=== PATIENT | female | born 1955 | race Caucasian/White ===

== ENCOUNTER 2018-12-02 01:18 | Outpatient (CLI) | payer OTHER, SELFPAY ==
[2018-12-02 09:13] LABS: Cholesterol 256 mg/dL (50-200); HDL Cholesterol 45 mg/dL (40-60); LDL CHOLESTEROL 180 mg/dL (<100); Triglyceride 100 mg/dL (30-150)
== END 2018-12-02 01:38 ==
PROVIDERS: PCP Family Medicine; Visit Provider Family Medicine
DX: E78.5 Hyperlipidemia, unspecified (principal)
CPT/HCPCS: 36415; 80061; 83721

== ENCOUNTER 2018-12-14 01:55 | Outpatient (CLI) | payer OTHER, SELFPAY ==
[2018-12-14 10:01] LABS: TSH (W/Ref FT4) 4.75 uIU/mL (0.358-3.74)
[2018-12-14 10:30] LABS: FREE T4 1.25 ng/dL (0.76-1.46)
== END 2018-12-14 02:15 ==
PROVIDERS: PCP Family Medicine; Visit Provider Family Medicine
DX: E03.9 Hypothyroidism, unspecified (principal)
CPT/HCPCS: 36415; 84439; 84443

== ENCOUNTER 2019-01-12 01:09 | Outpatient (CLI) | payer OTHER, SELFPAY ==
--- NOTE | 2019-01-12 07:30 | DI.MAMMO_ITS ---
SYMPTOMS/DIAGNOSIS: SCREENING, Z12.31 MAMMOGRAMS: Mammograms were interpreted according to the usual protocol including computer analysis with CAD system, tomosynthesis and C view imaging. The breast tissue is of moderate radiodensity. There is no mass. There are no suspicious calcifications and there has been no significant interval change when compared with the prior images. SUMMARY: No evidence of malignancy, category 1. Annual screening mammography is recommended. Breast density category B. SA ASSESSMENT OF FINDINGS: Negative. Category 1. Patient will receive a letter notifying them of these results. BI-RADS category B. There are scattered areas of fibroglandular density.
== END 2019-01-12 01:29 ==
PROVIDERS: PCP Family Medicine; Visit Provider Family Medicine
DX: Z12.31 Encounter for screening mammogram for malignant neoplasm of breast (principal)
CPT/HCPCS: 77063; 77067

== ENCOUNTER 2020-04-04 22:16 | Outpatient (REF) | payer OTHER, SELFPAY ==
[2020-04-04 19:24] LABS: Bilirubin Negative (Negative); Blood Trace-intact (Negative); Clarity Sl Cloudy (Clear); Glucose Negative (Negative); Ketones Negative (Negative); Leukocyte Esterase Large (Negative); Nitrite Negative (Negative); Specific Gravity <= 1.005 (1.005-1.025); Urobilinogen 0.2 EU/dL (Up TO 0.2)
[2020-04-04 19:33] LABS: WBC >50 HPF (0-5)
[2020-04-04 19:34] LABS: Bacteria Moderate HPF (Negative); C & S Indicated? Yes; Epithelial Cells Negative HPF (Negative); Other Cells Few Transitional (Negative); RBC 0-2 HPF (0-2)
== END 2020-04-04 22:36 ==
LOC: LBN 22:16
PROVIDERS: PCP Family Medicine; Visit Provider Nurse Practitioner
DX: N39.0 Urinary tract infection, site not specified (principal)
CPT/HCPCS: 87077; 81003; 81015; 87086; 87186

== ENCOUNTER 2020-05-29 00:53 | Outpatient (CLI) | payer OTHER, SELFPAY ==
--- NOTE | 2020-05-29 09:45 | DI.MRI_ITS ---
EXAM: MR BRAIN WO CLINICAL HISTORY: dizziness for 2 months H81.4 VERTIGO OF CENTRAL ORIGIN TECHNIQUE: Multiplanar multisequence MRI of the brain was performed. COMPARISON: No exams were available for comparison FINDINGS: The ventricular system is normal in appearance. No signal abnormality identified in the brain apart from couple of minimal focal white matter hyperin tense foci seen T2 weighted and FLAIR imaging not unusual in this age group.. The orbital and temporal bone structures appear intact as does the pituitary. Diffusion weighted imaging shows no evidence of infarction. Susceptibility weighted imaging shows no evidence of intracranial hemorrhage. There is normal flow void in the [place] vasculature. IMPRESSION: Normal brain MRI for age. DATA REPOSITORY:
== END 2020-05-29 01:13 ==
PROVIDERS: PCP Family Medicine; Visit Provider Family Medicine
DX: H81.4 Vertigo of central origin (principal)
CPT/HCPCS: 70551

== ENCOUNTER 2020-06-04 01:43 | Outpatient (CLI) | payer OTHER, SELFPAY ==
[2020-06-04 09:08] LABS: Calculated LDL 188 mg/dL (<100); Cholesterol 255 mg/dL (<200); Glucose 96 mg/dL (74-106); HDL Cholesterol 53 mg/dL (40-60); TSH (W/Ref FT4) 7.85 uIU/mL (0.36-3.74); Triglyceride 71 mg/dL (<150)
[2020-06-04 09:24] LABS: FREE T4 1.11 ng/dL (0.76-1.46)
--- NOTE | 2020-10-01 13:01 | ZIOP_ITS ---
Date of service: 10/01/20 Time of Service: 13:01 14 Day Chemical Instrumentation Officer Referring Provider:: Dalton Indications:: Palpitations Note: There is a 14-day monitor ordered for indication of palpitations. ?Patient was in normal sinus rhythm for the majority of the recording with an average heart rate of 51 bpm. ?There were rare PACs and no PVCs recorded. ?There were 24 runs of supraventricular tachycardia the longest lasting 14 beats. ?There are no episodes of atrial fibrillation, no pauses greater than 3 seconds and no evidence of high degree heart block. ?All patient recorded events were associated with sinus rhythm.
== END 2020-06-04 02:03 ==
PROVIDERS: PCP Family Medicine; Visit Provider Family Medicine
DX: E03.9 Hypothyroidism, unspecified (principal); E78.5 Hyperlipidemia, unspecified; R73.9 Hyperglycemia, unspecified
CPT/HCPCS: 80061; 82947; 84439; 84443

== ENCOUNTER 2020-09-16 20:22 | Emergency (ER) | payer OTHER, SELFPAY ==
[2020-09-16] VITALS (17 sets, daily range): BP systolic 146–167; BP diastolic 72–87; PULSE 79–109; RESP 10–24; TEMP 36.4–36.6; O2SAT 95–98
--- NOTE | 2020-09-16 20:15 | RT.EKG_ITS ---
APPROVED REPORT Exam: Resting ECG Patient Location: E HR:97 bpm ECG Measurements Heart Rate 97 AXIS WY 143 P 60 QRSd 87 QRS 71 QT 354 T 31 QTc 451 Conclusion Sinus rhythm...normal P axis, V-rate 60- 99 Probable left atrial enlargement...P >50mS, <-0.10mV V1 I have reviewed and interpreted ECG and agree with software generated interpretation.
--- NOTE | 2020-09-16 20:32 | ED.GENADUL_ITS ---
Discharge Plan Disposition Patient Disposition: HOME Condition: Good Discharge Details Clinical Impression: Palpitations, Elevated TSH Primary Care Provider: Matthew Mcclendon ED Provider: Blank Broderick Home Meds and New Rx's Prescriptions: New levothyroxine 100 mcg capsule 100 mcg PO DAILY Qty: 20 RF: 0 Continued alprazolam 0.5 mg tablet 0.5 mg PO ONCE Qty: 1 RF: 0 omeprazole 20 mg capsule,delayed release(DR/EC) 20 mg PO DAILY Qty: 90 RF: 4 sertraline 100 mg tablet 100 mg PO DAILY Qty: 90 RF: 4 clonazepam [Klonopin] 0.5 mg tablet 0.25 mg PO BID PRN (Reason: anxiety) Qty: 10 RF: 0 Discontinued levothyroxine 75 mcg tablet 75 mcg PO DAILY Qty: 90 RF: 4 Discharge Instructions Instructions: Heart Palpitations (ED) Additional Instructions: Drink plenty of fluids and get plenty of rest. Stop taking your levothyroxine 75 mcg and start taking the levothyroxine 100 mcg tomorrow. Call your primary care doctor's office tomorrow to schedule follow-up appointment for reevaluation. Return the manager of distribution to the hospital as directed by respiratory therapy. Return immediately to the emergency department if you develop any worsening or new concerning symptoms. Discharge Data Discharge Physician: Blank Broderick Medical Decision Making 2099 -- 65-year-old female with a history of sleep apnea, anxiety, GERD, hypothyroidism presents for 2 episodes of palpitations that occurred today. Denies any symptoms at present. Heart rate initially 109 on arrival, decreased to low 90s during my evaluation. She appeared to have increasing heart rate while nurse attempting to place IV which appeared associated with anxiety. Her blood pressure is elevated at 167/82 which she states she was told on the recent visit to her primary care doctor but she does not take blood pressure medication. EKG on arrival notes a rate of 97, sinus with no acute ST-T wave ischemic findings. 2199 -- Labs reviewed. Potassium 3.4. Troponin negative. TSH elevated to 17.41 compared to previous at 7.85 in May. Free T4 normal at 1.06. CT chest notes right middle lobe and left upper lobe nodules but no PE. Also noted cardiac enlargement and left ventricular dilation which may be related to obstructive sleep apnea. Patient reassessed and she feels good at this time and feels good to go home. She has remained asymptomatic since arrival. 14-day manager of distribution placed at bedside by respiratory. Patient advised to call her primary care doctor tomorrow for follow-up within the next week. Usual and customary return precautions given prior to discharge. Medical Records Medical records reviewed: Yes I reviewed the patient's medical records. Imaging Data Radiologic Study: Radiologist's impression: CT Angiography Chest With Contrast Exam date and time: 09/16/2020 8:54 PM Age: 65 years old Clinical indication: Patient HX: Tachycardia, fluttering, R/O pe TECHNIQUE: Imaging protocol: Computed tomographic angiography of the chest with intravenous contrast. 3D rendering (Not supervised by radiologist): MIP and/or 3D reconstructed images were created by the technologist. Radiation optimization: All CT scans at this facility use at least one of these dose optimization techniques: automated exposure control; mA and/or kV adjustment per patient size (includes targeted exams where dose is matched to clinical indication); or iterative reconstruction. Contrast material: OMNIPAQUE 350; Contrast volume: 66 ml; Contrast route: INTRAVENOUS (IV); COMPARISON: No relevant prior studies available. FINDINGS: Pulmonary arteries: No pulmonary arterial embolism evident. Pulmonary arteries are well opacified bilaterally. Aorta: Unremarkable. No aortic aneurysm. No aortic dissection. Lungs: Lateral segment and superior right middle lobe small nodular focus of nonspecific appearance. This is noncalcified. This measures approximately 6 x 5 mm. See series 6, image 350. Left upper lobe slightly stellate nodule measuring approximately 6 x 4 mm on series 6, image 122. Some areas of linear lung scarring or atelectatic type changes seen in the inferior and inferolateral right lower lobe and the left lung base. Linear scar-like changes also seen in the right upper lobe laterally. No infiltrative consolidation. No edema. Pleural space: No pleural effusion. Heart: Mild cardiomegaly. Left ventricular dilatation. No pericardial effusion. Lymph nodes: Calcified left hilar and left mediastinal lymph nodes related to an old granulomatous process. No enlarged lymph nodes. Bones/joints: Degenerative disc and joint disease.. No acute fracture. Soft tissues: Unremarkable. IMPRESSION: 1. No pulmonary arterial embolism evident. 2. Right middle lobe lateral segment nodule measuring 6 x 5 mm with slight stellate appearance. This may be pleural based on the horizontal fissure. See coronal series 10, image 31 with lung window. See series 6, image 350 on axial sequences. 3. Left upper lobe slightly stellate nodule measuring 6 x 4 mm. See series 6, image 21. See series 10, image 37. For patients at low risk (minimal or absent history of smoking and of other known risk factors), no routine follow-up is indicated. For patients at high risk (history of smoking or of other known risk factors), consider optional CT Chest at 12 months. (Reference: Pete) 4. No pleural effusions. 5. Cardiac enlargement. Left ventricular dilatation. No pericardial effusion. Lab Data Lab results reviewed: Yes I reviewed the patient's lab results. Labs: Laboratory Tests Range/Units 09/16/20 09/16/20 09/16/20 20:39 20:39 20:39 WBC (4.4-10.8) 10^3/uL 9.34 RBC (3.93-5.22) 10^6/uL 4.75 Hgb (11.2-15.7) g/dL 13.6 Hct (36.0-46.0) % 41.7 MCV (80-95) fL 87.8 MCH (27.0-33.0) pg 28.6 MCHC (32.0-36.0) % 32.6 RDW (11.7-14.6) % 12.1 Plt Count (130-400) 10^3/uL 285 MPV (8.0-11.0) fL 10.1 Immature Gran % 0.4 Neutrophils % 58.4 Lymphocytes % 31.3 Monocytes % 6.7 Eosinophils % 2.6 Basophils % 0.6 Nucleated RBC % % 0 Absolute Neutrophils (1.2-6.7) 10^3/uL 5.45 Absolute Lymphocytes (1.2-3.4) 10^3/uL 2.92 Absolute Monocytes (0.1-0.8) 10^3/uL 0.63 Absolute Eosinophils (0.0-0.7) 10^3/uL 0.24 Absolute Basophils (0.0-0.2) 10^3/uL 0.06 D-Dimer (<500) ng/mlFEU 397 Sodium (136-145) mmol/L 136 Potassium (3.5-5.1) mmol/L 3.4 L Chloride (98-107) mmol/L 101 Carbon Dioxide (21.0-32.0) mmol/L 29.0 Anion Gap (3-11) mmol/L 6.0 BUN (7-18) mg/dL 13 Creatinine (0.55-1.02) mg/dL 0.96 Estimated GFR/1.73 m2 (mL/min/1.73m2) 58.70 Glucose (74-106) mg/dL 155 H Calcium (8.5-10.1) mg/dL 8.9 Magnesium (1.8-2.4) mg/dL 2.2 Total Bilirubin (0.2-1.0) mg/dL 0.2 AST (15-37) U/L 17 ALT (14-59) U/L 28 Alkaline Phosphatase (46-116) U/L 100 Troponin I (<0.06) ng/mL < 0.05 Total Protein (6.4-8.2) g/dL 8.3 H Albumin (3.4-5.0) g/dL 3.8 TSH (0.36-3.74) uIU/mL Range/Units 09/16/20 20:39 WBC (4.4-10.8) 10^3/uL RBC (3.93-5.22) 10^6/uL Hgb (11.2-15.7) g/dL Hct (36.0-46.0) % MCV (80-95) fL MCH (27.0-33.0) pg MCHC (32.0-36.0) % RDW (11.7-14.6) % Plt Count (130-400) 10^3/uL MPV (8.0-11.0) fL Immature Gran % Neutrophils % Lymphocytes % Monocytes % Eosinophils % Basophils % Nucleated RBC % % Absolute Neutrophils (1.2-6.7) 10^3/uL Absolute Lymphocytes (1.2-3.4) 10^3/uL Absolute Monocytes (0.1-0.8) 10^3/uL Absolute Eosinophils (0.0-0.7) 10^3/uL Absolute Basophils (0.0-0.2) 10^3/uL D-Dimer (<500) ng/mlFEU Sodium (136-145) mmol/L Potassium (3.5-5.1) mmol/L Chloride (98-107) mmol/L Carbon Dioxide (21.0-32.0) mmol/L Anion Gap (3-11) mmol/L BUN (7-18) mg/dL Creatinine (0.55-1.02) mg/dL Estimated GFR/1.73 m2 (mL/min/1.73m2) Glucose (74-106) mg/dL Calcium (8.5-10.1) mg/dL Magnesium (1.8-2.4) mg/dL Total Bilirubin (0.2-1.0) mg/dL AST (15-37) U/L ALT (14-59) U/L Alkaline Phosphatase (46-116) U/L Troponin I (<0.06) ng/mL Total Protein (6.4-8.2) g/dL Albumin (3.4-5.0) g/dL TSH (0.36-3.74) uIU/mL 17.41 H ECG Data Attestation: I personally reviewed and interpreted this ECG (s) as follows: Interpretation: Rate of 97, sinus, no acute ST elevation or depression. VA 143. QRS 87. QTc 354. HPI General Mode of arrival: ambulatory . Date/Time Provider Initiated Documentation: 09/16/20 20:25 . Limitations to Documentation: no limitations . Information obtained by: patient . HPI Narrative: Patient is a 65-year-old female with a history of obstructive sleep apnea on CPAP, anxiety, hypothyroidism, GERD who presents for 2 episodes of heart fluttering today. 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 She states she had another episode that started at home this evening while standing doing dishes and then sitting that lasted for approximately 5 minutes and then resolved. She denies any chest pain, shortness of breath, nausea, vomiting or dizziness with either episode today. She states she has had similar episodes of heart fluttering and pounding in the past but states this is more intense than previous. She states these episodes do occur every few weeks. She states she has seen her primary care doctor for this but not had any additional evaluation. She denies any previous heart monitor. She denies any excessive caffeine intake, rnrf-dmg-syymdid supplements, energy supplements, new medications, recent travel, recent surgery, leg pain or swelling. Related Data Home Medications Medication Instructions Recorded Confirmed omeprazole 20 mg capsule,delayed 20 mg PO DAILY #90 tab-cap 11/16/18 09/16/20 release clonazepam 0.5 mg tablet 0.25 mg PO BID PRN #10 tab 10/23/19 09/16/20 sertraline 100 mg tablet 100 mg PO DAILY #90 tab-cap 11/21/19 09/16/20 alprazolam 0.5 mg tablet 0.5 mg PO ONCE #1 tab 05/21/20 09/16/20 levothyroxine 100 mcg PO DAILY #20 cap 09/16/20 Previous Rx's Medication Instructions Recorded omeprazole 20 mg capsule,delayed 20 mg PO DAILY #90 tab-cap 11/16/18 release clonazepam 0.5 mg tablet 0.25 mg PO BID PRN #10 tab 10/23/19 sertraline 100 mg tablet 100 mg PO DAILY #90 tab-cap 11/21/19 alprazolam 0.5 mg tablet 0.5 mg PO ONCE #1 tab 05/21/20 levothyroxine 100 mcg PO DAILY #20 cap 09/16/20 Allergies Allergy/AdvReac Type Severity Reaction Status Date / Time No Known Allergies Allergy Verified 09/16/20 20:37 Review of Systems All systems reviewed & are unremarkable except as noted in HPI and below Constitutional Constitutional: Reports as per HPI, Denies chills and Denies fever(s) Eyes Eyes: Denies blurry vision ENT Ears, Nose, Mouth, and Throat: Denies dizziness, Denies sore throat and Denies throat swelling Cardiovascular Cardiovascular: Denies chest pain, Reports palpitations and Denies dyspnea Respiratory Respiratory: Denies cough and Denies dyspnea Gastrointestinal Gastrointestinal: Denies abdominal pain, Denies diarrhea and Denies vomiting Genitourinary Genitourinary: Denies hematuria and Denies dysuria Musculoskeletal Musculoskeletal: Denies back pain and Denies numbness Integumentary/Breasts Skin/Breast: Denies lesions and Denies rash Neurologic Neurologic: Denies dizziness, Denies localized weakness and Denies numbness Endocrine Endocrine: Reports palpitations Allergic/Immunologic Allergic/Immunologic: Denies throat swelling [facility] Medical History (Updated 09/16/20 @ 22:15 by Blank Broderick DO) Severe obstructive sleep apnea (~08/09/19) DR. SHIPMAN Shoulder pain, left Sleep disorder Family History Mother , 74 Essential hypertension Hyperlipidemia Neoplasm LUNG Lung cancer Father , 69 Essential hypertension Heart disease Glioblastoma Sister Depression Brother No problems noted. Brother Depression Maternal Grandfather No problems noted. Paternal Grandfather No problems noted. Maternal Grandmother , 76? Heart disease Paternal Grandmother Uterine cancer Son No problems noted. Son No problems noted. Social History (Updated 11/16/18 @ 13:02 by Pramod Butler) Smoking/Tobacco Use Status: Never Second Hand Exposure: Yes Smoking risk assessment performed?: Yes Alcohol Intake: current Alcohol Intake frequency: holidays/special occasions only Alcohol type: wine Drug use: Never Substance use type: does not use Caregiver/Support person: No Household members: spouse Housing: house Communication Needs: Corrective Lenses Pets and animals: Yes Pets and animals: dog(s) Sexually active: No Do you think of yourself as: straight/heterosexual Current gender identity: female What is your relationship status?: How often do you talk on the phone with friends or family?: once per week How often do you get together with friends or relatives?: once per week How often do you attend sikh or uatsdin services?: 1-3 times per year Do you belong to any clubs or organized social groups?: yes Panel score (0-1 are the most socially isolated patients): 2 What type of physical activity do you participate in: walking and yoga Duration: 15-30 minutes/day Frequency: daily Fide/Protestant: Episcopal Special fide needs: No Seatbelt use: always Helmet use: Yes Drive intox or ride w/intox industrial truck driver: No Do you feel safe at home: Yes Do you feel safe in your relationship?: Yes Exam Const General: cooperative, healthy appearing and no acute distress Orientation: alert, awake and oriented x3 HENMT Head: normal to inspection Face and sinus: normal facial exam Eyes General: appearance normal, both eyes and all related structures Pupils: PERRL EOM: EOM intact bilaterally Neck Neck: normal visual inspection and No submandibular swelling Lymphatic: no lymphadenopathy noted Chest Chest: normal inspection of the chest and no tenderness Resp Effort & Inspection: normal respiratory effort and able to speak in complete s entences Auscultation: clear to auscultation bilaterally Cardio Rate: regular rate Rhythm: regular rhythm GI Inspection: normal to inspection Palpation: soft, not firm, not rigid and nontender Auscultation: normal bowel sounds Back/Spine/Pelvis Thoracic/Lumbar Spine: thoracic and lumbar spine normal to inspection Skin General skin exam: no rashes or lesions noted Neuro General: patient alert, patient awake and patient oriented x3 Cognition: normal cognition Speech: speech normal Motor: muscle tone normal throughout Sensory Exam: no sensory deficits noted Extrem General: normal to inspection, full ROM, capillary refill normal, no calf tenderness bilaterally and no edema Psych Appearance: grossly normal Mental Status: mental status grossly normal Speech and Movement: speech and movement normal Affect: normal affect
--- NOTE | 2020-09-16 20:45 | DI.CT_ITS ---
EXAM: CT CHEST PE CTA CLINICAL HISTORY: tachycardia, fluttering, r/o PE. TECHNIQUE: Imaging Protocol: Axial CT angiography was performed with multi-slice acquisition and mu lti-planar and/or 3D reconstructions. CONTRAST MATERIAL: Intravenous: Omnipaque 350 Contrast volume:66 mL COMPARISON: No exams were available for comparison FINDINGS: Exam is mildly limited by respiratory motion. Pulmonary Arteries: No evidence of filling defect to suggest pulmonary emboli. Tracheobronchial tree: Patent where visualized. Mediastinum and Liz: Small calcified left hilar lymph nodes consistent with old granulomatous diseas e. No dominant adenopathy or fluid collection. Pulmonary parenchyma: Respiratory motion. Mild dependent changes and basilar atelectasis. [address] left upper lobe nodule. 3 millimeter right upper lobe nodule. Sub pleural scarring. Scarring a long the minor fissure. Pleura: No effusion or pneumothorax. Heart: The heart is not dilated. No coronary artery calcifications are seen. Aorta: Thoracic aorta non-dilated. Mild atherosclerotic changes. Upper abdomen: Tiny hiatal hernia. Bones: Mild degenerative disc changes. IMPRESSION: No evidence of pulmonary embolism. Evaluation of the lungs is limited due to respiratory motion and expiratory changes. A 6 millimeter nodule is noted in the left upper lobe a follow-up chest CT could be considered in 12 months. RADIATION DOSE DELIVERED: 339.06mGy.cm Total DLP DATA REPOSITORY: All CT scans at this facility are submitted to the National Radiology Data Registry (NRDR) Dose Index Registry (DIR) with the [employer] (ACR). RADIATION OPTIMIZATION: All CT scans at this facility use at least one of these dose optimization te chniques: automated exposure control; mA and/or kV adjustment per patient size (includes targeted exa ms where dose is matched to clinical indication); or iterative reconstruction.
[2020-09-16 20:48] LABS: Abs Immature Grans 0.04 10^3/uL (0.0-0.06); Absolute Basophil Count 0.06 10^3/uL (0.0-0.2); Absolute Eosinophil Count 0.24 10^3/uL (0.0-0.7); Absolute Lymphocyte Count 2.92 10^3/uL (1.2-3.4); Absolute Monocyte Count 0.63 10^3/uL (0.1-0.8); Absolute Neutrophil Count 5.45 10^3/uL (1.2-6.7); Basophils % 0.6; Eosinophils % 2.6; HCT 41.7 % (36.0-46.0); HGB 13.6 g/dL (11.2-15.7); Immature Grans % 0.4; Lymphocytes % 31.3; MCH 28.6 pg (27.0-33.0); MCHC 32.6 % (32.0-36.0); MCV 87.8 fL (80-95); MPV 10.1 fL (8.0-11.0); Monocytes % 6.7; Neutrophils % 58.4; Nucleated RBC 0 %; Platelet Count 285 10^3/uL (130-400); RBC 4.75 10^6/uL (3.93-5.22); RDW 12.1 % (11.7-14.6); RDW-SD 38.7 fL; WBC 9.34 10^3/uL (4.4-10.8)
[2020-09-16 21:04] LABS: ALT 28 U/L (14-59); AST 17 U/L (15-37); Albumin 3.8 g/dL (3.4-5.0); Alkaline Phosphatase 100 U/L (46-116); BUN 13 mg/dL (7-18); Bilirubin, Total 0.2 mg/dL (0.2-1.0); CREATININE 0.96 mg/dL (0.55-1.02); Calcium 8.9 mg/dL (8.5-10.1); Chloride 101 mmol/L (98-107); Glucose 155 mg/dL (74-106); Magnesium 2.2 mg/dL (1.8-2.4); Potassium 3.4 mmol/L (3.5-5.1); Sodium 136 mmol/L (136-145); Total Protein 8.3 g/dL (6.4-8.2)
[2020-09-16 21:05] LABS: Troponin I < 0.05 ng/mL (<0.06)
[2020-09-16 21:22] LABS: D-Dimer 397 ng/mlFEU (<500)
[2020-09-16] MEDS: Omnipaque 350 MG/ML 100 ML BTL IJ (21:25)
[2020-09-16] MEDS: Normal Saline - Diluent 50 ML VIAL IV (21:26)
[2020-09-16] MEDS: ACETAMINOPHEN 1,000 MG/100 ML BTL 400 MG IVPB (21:35)
[2020-09-16] MEDS: Normal Saline 250 ML 500 ML IV (21:35)
[2020-09-16 21:36] LABS: TSH (W/Ref FT4) 17.41 uIU/mL (0.36-3.74)
[2020-09-16] MEDS: Potassium Chloride 20 MEQ TABCR PO (21:43)
--- NOTE | 2020-09-16 21:47 | NUR.NOTE ---
Nursing Note: Hayde from RT here to put halter monitor on.
--- NOTE | 2020-09-16 21:49 | DI.VRAD_ITS ---
PROCEDURE INFORMATION: Exam: CT Angiography Chest With Contrast Exam date and time: 09/16/2020 8:54 PM Age: 65 years old Clinical indication: Patient HX: Tachycardia, fluttering, R/O pe TECHNIQUE: Imaging protocol: Computed tomographic angiography of the chest with intravenous contrast. 3D rendering (Not supervised by radiologist): MIP and/or 3D reconstructed images were created by the technologist. Radiation optimization: All CT scans at this facility use at least one of these dose optimization techniques: automated exposure control; mA and/or kV adjustment per patient size (includes targeted exams where dose is matched to clinical indication); or iterative reconstruction. Contrast material: OMNIPAQUE 350; Contrast volume: 66 ml; Contrast route: INTRAVENOUS (IV); COMPARISON: No relevant prior studies available. FINDINGS: Pulmonary arteries: No pulmonary arterial embolism evident. Pulmonary arteries are well opacified bilaterally. Aorta: Unremarkable. No aortic aneurysm. No aortic dissection. Lungs: Lateral segment and superior right middle lobe small nodular focus of nonspecific appearance. This is noncalcified. This measures approximately 6 x 5 mm. See series 6, image 350. Left upper lobe slightly stellate nodule measuring approximately 6 x 4 mm on series 6, image 122. Some areas of linear lung scarring or atelectatic type changes seen in the inferior and inferolateral right lower lobe and the left lung base. Linear scar-like changes also seen in the right upper lobe laterally. No infiltrative consolidation. No edema. Pleural space: No pleural effusion. Heart: Mild cardiomegaly. Left ventricular dilatation. No pericardial effusion. Lymph nodes: Calcified left hilar and left mediastinal lymph nodes related to an old granulomatous process. No enlarged lymph nodes. Bones/joints: Degenerative disc and joint disease.. No acute fracture. Soft tissues: Unremarkable. IMPRESSION: 1. No pulmonary arterial embolism evident. 2. Right middle lobe lateral segment nodule measuring 6 x 5 mm with slight stellate appearance. This may be pleural based on the horizontal fissure. See coronal series 10, image 31 with lung window. See series 6, image 350 on axial sequences. 3. Left upper lobe slightly stellate nodule measuring 6 x 4 mm. See series 6, image 21. See series 10, image 37. For patients at low risk (minimal or absent history of smoking and of other known risk factors), no routine follow-up is indicated. For patients at high risk (history of smoking or of other known risk factors), consider optional CT Chest at 12 months. (Reference: Pete) 4. No pleural effusions. 5. Cardiac enlargement. Left ventricular dilatation. No pericardial effusion. REFERENCES: Pete Martinez, et al. Guidelines for Management of Incidental Pulmonary Nodules Detected on CT Images: From the Fleischner Society 2017. Radiology. 2017;284(1):228-243. Dictated and Authenticated by: Gus Cruz MD. Ordering:ABRAHAM Parson MD
[2020-09-16 21:57] LABS: FREE T4 1.06 ng/dL (0.76-1.46)
== END 2020-09-16 22:31 | disposition home or self-care (01) ==
PROVIDERS: Emergency Provider Physician Assistant; PCP Family Medicine
DX: R00.2 Palpitations (principal); R94.6 Abnormal results of thyroid function studies; E03.9 Hypothyroidism, unspecified; I10 Essential (primary) hypertension; R91.1 Solitary pulmonary nodule
CPT/HCPCS: 36415; 71275; 80053; 93005; 93246; 96361; 96365; 99285; 83735; 84439; 84443; 84484; 85025; 85379; 93010; J0131; J3490

== ENCOUNTER 2020-11-22 14:10 | Outpatient (REF) | payer OTHER, SELFPAY ==
--- NOTE | 2020-11-22 12:00 | PAPFT_PTH ---
PATIENT: Carina Schreiber LOC: [facility] U#:[id number] AGE/SX: 65/F ROOM: RE11/22/[address]: Matthew Mcclendon MD : [id number] BED: DIS: 11/22/2020 SPEC #: [id number] RECD: 11/22/20 17:31 STATUS: MAHOGANY MATHEW #: [id number] MATTHIAS: 11/22/20 12:[address]: Matthew Mcclendon DEPT: [facility] Cytology RECD BY: Jodie Laurent Tissues: 1 - CX/ENDOCX FOR PAP SMEARS Procedures: PAP THIN PREP/UVM Screening HPV DNA PROBE Comments: [id number]
== END 2020-11-22 14:11 | disposition home or self-care (01) ==
LOC: LBN 14:10
PROVIDERS: PCP Family Medicine; Visit Provider Family Medicine
DX: Z12.4 Encounter for screening for malignant neoplasm of cervix (principal); Z11.51 Encounter for screening for human papillomavirus (HPV)
CPT/HCPCS: 88142; 87624

== ENCOUNTER 2020-11-29 04:06 | Outpatient (CLI) | payer OTHER, SELFPAY ==
--- NOTE | 2020-11-29 06:30 | DI.MAMMO_ITS ---
EXAM: MG MAMMO SCREENING CLINICAL HISTORY: screening,z12.39 TECHNIQUE: Bilateral full field digital CC and MLO mammographic images were obtained with 3D tomosyn thesis and utilizing computer aided detection (CAD). COMPARISON: Available for comparison. FINDINGS: Masses/Architectural Distortion: None seen. Microcalcifications: No suspicious pleomorphic-type are seen. Skin Thickening/Nipple Retraction: None. IMPRESSION: 1. No significant interval change with no specific features of malignancy noted. 2. Unless there is more urgent need, screening mammography is recommended, as per [employer] guidelines. BI-RADS Category 1 - Negative Breast Density - Category B - Scattered areas of fibroglandular density Breast density category C or D implies that the patient has dense breast tissue. Dense breast tissue is very common and is not abnormal but dense breast tissue can make it harder to find cancer on a ma mmogram. Also, dense breast tissue may increase their breast cancer risk. This information about the result of the mammogram report was provided to the patient to raise their awareness. Use this report when you speak with the patient about their risks for breast cancer, which includes their family hist ory. At that time, you may recommend for more screening tests (Ultrasound or MRI) as they might be us eful based on their risk. A negative radiographic report should not delay biopsy if a dominant or clinically suspicious mass is present. Up to ten percent of cancers are not identified on mammography. A negative report may reinforce clinical impression. Adenosis and dense breasts may obscure an underlying neoplasm. False positive reports average 6 to 10%. Patient will receive a letter notifying them of these results.
== END 2020-11-29 04:26 ==
PROVIDERS: PCP Family Medicine; Visit Provider Family Medicine
DX: Z12.31 Encounter for screening mammogram for malignant neoplasm of breast (principal)
CPT/HCPCS: 77063; 77067

== ENCOUNTER 2021-07-19 15:25 | Outpatient (REF) | payer OTHER, SELFPAY ==
[2021-07-19 15:06] LABS: Bilirubin Negative (Negative); Blood Trace-intact (Negative); Clarity Cloudy (Clear); Glucose Negative (Negative); Ketones Negative (Negative); Leukocyte Esterase Small (Negative); Nitrite Negative (Negative); Specific Gravity 1.025 (1.005-1.025); Urobilinogen 0.2 EU/dL (Up TO 0.2)
[2021-07-19 15:23] LABS: Bacteria Moderate HPF (Negative); C & S Indicated? Yes; Casts Negative LPF (Negative); Crystals Negative HPF (Negative); Epithelial Cells Few HPF (Negative); Mucus Negative (Negative)
== END 2021-07-19 15:26 | disposition home or self-care (01) ==
LOC: LBN 15:25
PROVIDERS: PCP Family Medicine; Visit Provider Nurse Practitioner Family
DX: N39.0 Urinary tract infection, site not specified (principal); N76.0 Acute vaginitis
CPT/HCPCS: 87077; 81003; 81015; 87086; 87186; 87480; 87510; 87660

== ENCOUNTER → 2021-11-03 13:31 | Outpatient (CLI) | payer OTHER, SELFPAY ==
--- NOTE | 2021-11-03 09:45 | DI.RAD_ITS ---
Exam(s) XR TOE LT GREAT EXAM: XR TOE LT GREAT INDICATION: fall yesterday, pain over distal left toe M79.676 PAIN. COMPARISON: No exams were available for comparison TECHNIQUE: 2D digital imaging was performed. Three views FINDINGS: There is an intra-articular fracture the distal aspect of the proximal phalanx of the great toe. The re is dorsal angulation and mild dorsal displacement. There is minimal lateral displacement. No add itional fractures. Mild degenerative changes 1st MTP joint. Hallux valgus. Chronic appearing bony densities near the medial aspect of the 1st metatarsal head with adjacent soft tissue swelling. No b alana erosions. Impression: Intra-articular fracture of the distal aspect of proximal phalanx. DATA REPOSITORY: RADIATION DOSE DELIVERED:
== END ==
PROVIDERS: PCP Family Medicine; Visit Provider Family Medicine
DX: M79.675 Pain in left toe(s) (principal); S92.412A Displaced fracture of proximal phalanx of left great toe, initial encounter for closed fracture; M20.12 Hallux valgus (acquired), left foot; W19.XXXA Unspecified fall, initial encounter
CPT/HCPCS: 73660

== ENCOUNTER 2021-11-20 11:57 | Outpatient (CLI) | payer OTHER, SELFPAY ==
--- NOTE | 2021-11-20 11:45 | DI.RAD_ITS ---
Exam(s) XR TOE LT GREAT EXAM: XR TOE LT GREAT CLINICAL HISTORY: L great toe fx. TECHNIQUE: 2D digital imaging was performed. Three views. COMPARISON: CR XR TOE LT GREAT from 11/03/2021 FINDINGS: There is overlap of the toes on the lateral view. There has been no change in the alignment of the i ntra-articular fracture at the distal aspect of the proximal phalanx of the great toe. DATA REPOSITORY: RADIATION DOSE DELIVERED:
== END 2021-11-20 11:58 | disposition home or self-care (01) ==
LOC: DIORS 11:57
PROVIDERS: PCP Family Medicine; Referring Provider Family Medicine; Visit Provider Physician Assistant
DX: S92.412D Displaced fracture of proximal phalanx of left great toe, subsequent encounter for fracture with routine healing (principal); W19.XXXD Unspecified fall, subsequent encounter
CPT/HCPCS: 73660

== ENCOUNTER 2021-12-08 02:55 | Outpatient (CLI) | payer OTHER, SELFPAY ==
[2021-12-08 15:20] LABS: Anion Gap 8.3 mmol/L (3-11); BUN 13 mg/dL (7-18); CO2 29.7 mmol/L (21.0-32.0); CREATININE 0.8 mg/dL (0.55-1.02); Calcium 9.5 mg/dL (8.5-10.1); Chloride 99 mmol/L (98-107); Glucose 101 mg/dL (74-106); Potassium 4.1 mmol/L (3.5-5.1); Sodium 137 mmol/L (136-145); TSH (W/Ref FT4) 5.41 uIU/mL (0.36-3.74)
[2021-12-08 15:48] LABS: Calculated LDL 187 mg/dL (<100); Cholesterol 254 mg/dL (<200); HDL Cholesterol 49 mg/dL (40-60); Triglyceride 94 mg/dL (<150)
== END 2021-12-08 02:56 | disposition home or self-care (01) ==
LOC: LBO 02:55
PROVIDERS: PCP Family Medicine; Visit Provider Family Medicine
DX: E78.5 Hyperlipidemia, unspecified (principal); E87.1 Hypo-osmolality and hyponatremia; E03.9 Hypothyroidism, unspecified
CPT/HCPCS: 36415; 80048; 80061; 84439; 84443

== ENCOUNTER → 2021-12-30 00:14 | Outpatient (CLI) | payer OTHER, SELFPAY ==
--- NOTE | 2021-12-30 08:06 | DI.MAMMO_ITS ---
Exam(s) MAMMO SCREENING EXAM: MAMMO SCREENING CLINICAL HISTORY: screening, Z12.39. TECHNIQUE: Bilateral full field digital CC and MLO mammographic images were obtained with 3D tomosyn thesis and utilizing computer aided detection (CAD). COMPARISON: Prior mammograms were reviewed, the most recent being November 2020. FINDINGS: No CAD designations. There is now a asymmetric density-probable 4 by 3 millimeter nodule in the left breast located 6 cm i n from the nipple on the 3D cc view. Slightly smaller nodules are noted just lateral to this nodule on the 3D cc views. In the opposite-right breast there is slightly smaller asymmetric density-possible nodule seen on the 3D cc imaging located approximately 6 cm the nipple. No malignant-appearing microcalcification groups in this region or elsewhere in either breast. No ne w architectural distortion or skin thickening-traction. There is no significant architectural distortion nor skin thickening-retraction. IMPRESSION: New bilateral asymmetric densities-possible nodules. Bilateral spot compression CC views recommended as well as ultrasound. BI-RADS Category 0 - Assessment Incomplete: Need additional imaging evaluation Breast Density - Category B - Scattered areas of fibroglandular density Breast density Category C or D implies that the patient has dense breast tissue. Dense breast tissue can make it harder to find cancer on a mammogram. Dense breast tissue is also associated with an incr eased risk of breast cancer. This information about the result of the mammogram report was provided to the patient to raise their awareness. Use this report when you speak with the patient about their risks for breast cancer, which includes their family history. At that time, you may recommend additional screening tests (Ultrasoun d or MRI) as these tests may add significant information. A negative radiographic report should not delay biopsy if a dominant or clinically suspicious mass is present. Up to ten percent of cancers are not identified on mammography. A negative report may reinforce clinical impression. Adenosis and dense breasts may obscure an underlying neoplasm. False positive reports average 6 to 10%. Patient will receive a letter notifying them of these results.
== END ==
PROVIDERS: PCP Family Medicine; Visit Provider Family Medicine
DX: Z12.31 Encounter for screening mammogram for malignant neoplasm of breast (principal); R92.8 Other abnormal and inconclusive findings on diagnostic imaging of breast
CPT/HCPCS: 77063; 77067

== ENCOUNTER → 2022-01-07 01:11 | Outpatient (CLI) | payer OTHER, SELFPAY ==
--- NOTE | 2022-01-07 13:00 | DI.MAMMO_ITS ---
Exam(s) US BREAST LT COMPLETE US BREAST RT COMPLETE MG MAMMO SCREEN CALL BACK BI EXAM: MG MAMMO SCREEN CALL BACK BILATERAL AND COMPLETE BILATERAL BREAST ULTRASOUND CLINICAL HISTORY: F/U ABNL MAMMO, BILATERAL ASYMMETRIC DENSITIES-POSSIBLE NODULES. TECHNIQUE: BILATERAL spot mammographic images obtained with 3D tomosynthesisand utilizing computer a ided detection (CAD). . Complete BILATERAL breast Ultrasound was also performed, including all 4 quadrants, the retroareolar region, and the ipsilateral axilla. COMPARISON: Prior mammograms were reviewed. This additional imaging was performed due to findings described on the recent screening mammogram of 12/30/2021. FINDINGS: DIAGNOSTIC BILATERAL MAMMOGRAM: Additional mammographic views performed today. Dissipate finding in the right breast.A small nodule in the left breast persists. BILATERAL COMPLETE BREAST ULTRASOUND: All 4 quadrants of both breasts were studied as were the retroareolar regions and both axillary regio ns. RIGHT breast ultrasound reveals no significant findings in all 4 quadrants and no axillary adenopathy . LEFT breast ultrasound reveals a solitary 3 millimeter microcyst at the 9 o'clock position which prob ably corresponds to the finding on the mammogram. Most importantly, there are no solid lesions seen in all 4 quadrants of the left breast. Is also no significant left axillary adenopathy. IMPRESSION: 1. No radiographic evidence of malignancy in the right breast and negative right breast ultrasound. 2. Benign 3 millimeter micro cyst noted in the left breast which most probably corresponds to the alesia itary small benign-appearing nodule on the mammogram. Appropriate follow-up is to keep this patient yearly mammogram schedule, with earlier imaging if a s elf detected breast change is noted.. The patient was informed of these findings and recommendations prior to leaving the department today. BI-RADS Category 2 - Benign Findings Breast Density - Category B - Scattered areas of fibroglandular density Breast density Category C or D implies that the patient has dense breast tissue. Dense breast tissue can make it harder to find cancer on a mammogram. Dense breast tissue is also associated with an incr eased risk of breast cancer. This information about the result of the mammogram report was provided to the patient to raise their awareness. Use this report when you speak with the patient about their risks for breast cancer, which includes their family history. At that time, you may recommend additional screening tests (Ultrasoun d or MRI) as these tests may add significant information. A negative radiographic report should not delay biopsy if a dominant or clinically suspicious mass is present. Up to ten percent of cancers are not identified on mammography. A negative report may reinforce clinical impression. Adenosis and dense breasts may obscure an underlying neoplasm. False positive reports average 6 to 10%. Patient will receive a letter notifying them of these results.
== END ==
PROVIDERS: PCP Family Medicine; Visit Provider Family Medicine
DX: Z12.31 Encounter for screening mammogram for malignant neoplasm of breast (principal); R92.8 Other abnormal and inconclusive findings on diagnostic imaging of breast; N60.02 Solitary cyst of left breast; N64.59 Other signs and symptoms in breast
CPT/HCPCS: 76642; 77063; 77067

== ENCOUNTER 2022-02-07 13:34 | Outpatient (REF) | payer OTHER, SELFPAY ==
[2022-02-07 18:06] LABS: Bilirubin Negative (Negative); Blood Trace-intact (Negative); Clarity Clear (Clear); Glucose Negative (Negative); Ketones Negative (Negative); Leukocyte Esterase Negative (Negative); Nitrite Negative (Negative); Urobilinogen 0.2 EU/dL (Up TO 0.2); pH 7.5 (5-8)
[2022-02-07 19:40] LABS: Bacteria Negative HPF (Negative); C & S Indicated? No; Casts Negative LPF (Negative); Crystals Negative HPF (Negative); Epithelial Cells Negative HPF (Negative); Mucus Negative (Negative); Other Cells Negative (Negative); RBC Negative HPF (0-2); WBC Negative HPF (0-5)
== END 2022-02-07 13:35 | disposition home or self-care (01) ==
LOC: NCHCN 13:34
PROVIDERS: PCP Family Medicine; Visit Provider Physician Assistant
DX: R82.998 Other abnormal findings in urine; R42 Dizziness and giddiness
CPT/HCPCS: 81003; 81015

== ENCOUNTER 2022-02-10 13:01 | Outpatient (CLI) | payer OTHER, SELFPAY ==
[2022-02-10 12:41] LABS: Abs Immature Grans 0.02 10^3/uL (0.0-0.06); Absolute Basophil Count 0.03 10^3/uL (0.0-0.2); Absolute Eosinophil Count 0.22 10^3/uL (0.0-0.7); Absolute Lymphocyte Count 1.86 10^3/uL (1.2-3.4); Absolute Monocyte Count 0.48 10^3/uL (0.1-0.8); Absolute Neutrophil Count 4.29 10^3/uL (1.2-6.7); Basophils % 0.4; Eosinophils % 3.2; HCT 41.7 % (36.0-46.0); HGB 13.9 g/dL (11.2-15.7); Immature Grans % 0.3; MCH 29.1 pg (27.0-33.0); MCHC 33.3 % (32.0-36.0); MCV 87 fL (80-95); Neutrophils % 62.1; Platelet Count 272 10^3/uL (130-400); RBC 4.78 10^6/uL (3.93-5.22); RDW 12.1 % (11.7-14.6); RDW-SD 39.2 fL
[2022-02-10 12:58] LABS: ALT 31 U/L (14-59); AST 19 U/L (15-37); Alkaline Phosphatase 104 U/L (46-116); Anion Gap 7.6 mmol/L (3-11); BUN 17 mg/dL (7-18); Bilirubin, Total 0.2 mg/dL (0.2-1.0); CO2 29.4 mmol/L (21.0-32.0); CREATININE 0.8 mg/dL (0.55-1.02); Calcium 9.1 mg/dL (8.5-10.1); Chloride 99 mmol/L (98-107); Glucose 105 mg/dL (74-106); Potassium 4.1 mmol/L (3.5-5.1); Sodium 136 mmol/L (136-145); Total Protein 8.2 g/dL (6.4-8.2)
== END 2022-02-10 13:02 | disposition home or self-care (01) ==
LOC: LBO 13:04
PROVIDERS: PCP Family Medicine; Visit Provider Physician Assistant
DX: R42 Dizziness and giddiness (principal)
CPT/HCPCS: 36415; 80053; 85025

== ENCOUNTER → 2022-02-26 09:32 | Outpatient (CLI) | payer OTHER, SELFPAY ==
--- NOTE | 2022-02-26 09:00 | DI.RAD_ITS ---
Exam(s) XR CHEST 2V PA LATERAL EXAM: XR CHEST 2V PA LATERAL CLINICAL HISTORY: Left lung clear, right lung ronchi, wheezes, R09.89. TECHNIQUE: 2D digital imaging was performed. COMPARISON: No exams were available for comparison FINDINGS: 2 views: Heart size is normal. The mediastinum is not widened. Lungs are clear. No infiltrates nor pleural effusions. IMPRESSION: No acute pulmonary findings. DATA REPOSITORY: RADIATION DOSE DELIVERED:
== END ==
PROVIDERS: PCP Family Medicine; Visit Provider Nurse Practitioner Family
DX: R09.89 Other specified symptoms and signs involving the circulatory and respiratory systems (principal); R06.2 Wheezing
CPT/HCPCS: 71046

== ENCOUNTER 2022-03-07 18:32 | Emergency (ER) | payer OTHER, SELFPAY ==
[2022-03-07] VITALS (29 sets, daily range): BP systolic 95–170; BP diastolic 26–81; PULSE 69–180; RESP 9–30; TEMP 36.5; O2SAT 97–100
--- NOTE | 2022-03-07 18:30 | RT.EKG_ITS ---
APPROVED REPORT Exam: Resting ECG Reason for Exam: dizzy, rapid HR Patient Location: E HR:86 bpm ECG Measurements Heart Rate 86 AXIS WY 152 P 55 QRSd 89 QRS 63 QT 377 T 21 QTc 451 Conclusion Sinus rhythm...normal P axis, V-rate 60- 99 Probable left atrial enlargement...P >50mS, <-0.10mV V1 Physician: no stemi
[2022-03-07] MEDS: Normal Saline 500 ML IV (19:09)
[2022-03-07 19:17] LABS: Abs Immature Grans 0.04 10^3/uL (0.0-0.06); Absolute Basophil Count 0.07 10^3/uL (0.0-0.2); Absolute Monocyte Count 0.77 10^3/uL (0.1-0.8); Absolute Neutrophil Count 7.31 10^3/uL (1.2-6.7); Basophils % 0.6; Eosinophils % 2.5; HCT 40.8 % (36.0-46.0); HGB 13.5 g/dL (11.2-15.7); Immature Grans % 0.4; Lymphocytes % 25.5; MCH 29.1 pg (27.0-33.0); MCHC 33.1 % (32.0-36.0); MCV 88 fL (80-95); MPV 10.5 fL (8.0-11.0); Monocytes % 6.8; Neutrophils % 64.2; Platelet Count 311 10^3/uL (130-400); RBC 4.64 10^6/uL (3.93-5.22); RDW-SD 38.4 fL; WBC 11.39 10^3/uL (4.4-10.8)
[2022-03-07 19:18] LABS: Absolute Eosinophil Count 0.28 10^3/uL (0.0-0.7)
[2022-03-07 19:45] LABS: ALT 29 U/L (14-59); AST 19 U/L (15-37); Albumin 3.9 g/dL (3.4-5.0); Alkaline Phosphatase 99 U/L (46-116); Anion Gap 6.4 mmol/L (3-11); BUN 14 mg/dL (7-18); Bilirubin, Total 0.2 mg/dL (0.2-1.0); CO2 30.6 mmol/L (21.0-32.0); CREATININE 0.9 mg/dL (0.55-1.02); Calcium 9.2 mg/dL (8.5-10.1); Chloride 100 mmol/L (98-107); Glucose 123 mg/dL (74-106); Magnesium 2.2 mg/dL (1.8-2.4); Potassium 3.7 mmol/L (3.5-5.1); Sodium 137 mmol/L (136-145); TSH 5.22 uIU/mL (0.36-3.74); Total Protein 8.1 g/dL (6.4-8.2)
[2022-03-07 19:56] LABS: Bilirubin Negative (Negative); Blood Negative (Negative); Clarity Clear (Clear); Glucose Negative (Negative); Ketones Negative (Negative); Leukocyte Esterase Trace (Negative); Nitrite Negative (Negative); Specific Gravity 1.015 (1.005-1.025); Urobilinogen 0.2 EU/dL (Up TO 0.2)
[2022-03-07 20:01] LABS: Bacteria Few HPF (Negative); C & S Indicated? Yes; Casts Negative LPF (Negative); Crystals Negative HPF (Negative); Epithelial Cells Few HPF (Negative); Mucus Negative (Negative); RBC 0-2 HPF (0-2)
[2022-03-07 20:10] LABS: *AMPHETAMINES SCREEN URINE Negative (Negative); *BARBITURATES SCREEN URINE Negative (Negative); *BENZODIAZEPINES SCREEN URINE Negative (Negative); Cannabinoids THC Negative (Negative); Cocaine Screen,Urine Negative (Negative); METHADONE URINE SCREEN Negative (Negative); OPIATES URINE SCREEN Negative (Negative)
[2022-03-07 20:11] LABS: Tricyclic Antidepressants Negative (Negative)
--- NOTE | 2022-03-07 20:11 | W.ED.GENAD ---
Discharge Plan Disposition Patient Disposition: HOME Condition: Improving Discharge Details Clinical Impression: Adverse effects of medication, UTI (urinary tract infection), Panic attack Primary Care Provider: Matthew Mcclendon ED Provider: George Nowak Home Meds and New Rx's Prescriptions: Continued sertraline 100 mg tablet 100 mg PO DAILY Qty: 90 4RF omeprazole 20 mg capsule,delayed release(DR/EC) 20 mg PO DAILY Qty: 90 4RF levothyroxine 75 mcg tablet 75 mcg PO DAILY Qty: 90 3RF clonazepam [Klonopin] 0.5 mg tablet 0.25 mg PO BID PRN (Reason: anxiety) Qty: 10 0RF Rx Instructions: Take 1/2 tab for a total dose of 0.25 mg BID prn. Changed lisinopril 20 mg tablet 10 mg PO DAILY Qty: 90 0RF Discharge Instructions Instructions: Urinary Tract Infection in Women (ED), Panic Attack (ED) Additional Instructions: At this time I believe your symptoms may be related to the increase of your lisinopril. Please return to taking only 10 mg daily and follow-up with your primary care provider for reassessment. If you have any new or significant worsening of symptoms return immediately to the emergency department for reassessment and further testing as needed. Also please take the antibiotic for a suspected urinary tract infection and we will call you with culture results if we need to change the antibiotic that you are on. Referrals: Matthew Mcclendon MD [Primary Care Provider] - 1 week Discharge Data Discharge Date/Time-TO BE ENTERED AT DEPARTURE: 03/07/22 21:11 Medical Decision Making Patient presenting to the emergency department for chief complaint of feeling off. She states for approximately the past week she has felt like she was drugged. She states that she wakes up in the morning and feels fine but then after taking her medications an hour and a half later she starts feeling abnormal. This typically lasts until 7 PM. Tonight she started feeling off, became dizzy and started having some palpitations. She does state the dizziness and palpitations felt like panic attack which she has known history of. Patient does state mild headache but otherwise denies symptoms. Physical exam is unremarkable with no focal findings. We will plan on checking labs and urinalysis to see if there is an obvious cause but I suspect it could be 1 of 2 medications. Patient does state that symptoms seem to correlate when she had an increase of her lisinopril but also states her sertraline formulation had changed as well. Pending results we will give patient IV fluids. Patient denies any need for pain medication to treat headache. Please see physician interpretation for full interpretation of EKG but patient is in sinus rhythm with a rate of 86 and no signs of STEMI criteria. Review of labs show a mild leukocytosis with white count of 11.3 And slight elevation of neutrophils at 7.31. CMP is otherwise unremarkable except for glucose of 123. Urinalysis does show subtle signs of urinary tract infection with trace leukocytes and WBCs of 10-20 with bacteria cells present. Reflective culture was automatically ordered by lab and did discuss this with patient. She does state some increase in urinary frequency and slight urgency that she has noted over the past 24 hours but otherwise denies all other urinary symptoms. We will treat this with Macrobid pending culture. Patient's drug screen was negative and TSH was significantly elevated at 5.22 but free T4 was appropriate at 1.05. Reassessed patient after fluids had finished and she stated significant improvement of symptoms. Given this I do feel reassured. Will recommend a trial of patient reducing dose of lisinopril back down to 10 mg instead of the 20 and see if this helps patient's symptoms. Will recommend patient follow-up with primary care provider for reassessment and consideration of different hypertension control if this is medication related. After discussion of diagnosis and plan of care patient has no further needs, questions, or concerns and states clear understanding to return to the emergency department for any worsening symptoms. This documentation was generated using [employer] dictation system, please disregard any oddities of phrase or misspellings. HPI General Mode of arrival: ambulatory. Date/Time Provider Initiated Documentation: 03/07/22 18:39. Limitations to Documentation: no limitations. Information obtained by: patient and RN notes reviewed. History of Present Illness 66 year old F presents to the emergency department with the chief complaint of Feeling off, described as moderate, and is localized to the head. Patient reports no radiation. Patient started experiencing this week(s) (1) and it has been intermittent. No relieving factors improve symptom(s), Medication worsens symptoms . Patient notes headaches; denies fever/chills and malaise. Patient did receive the following treatments prior to arrival, none Related Data Home Medications Medication Instructions Recorded Confirmed omeprazole 20 mg capsule,delayed 20 mg PO DAILY #90 tab-caps 11/28/21 03/07/22 release sertraline 100 mg tablet 100 mg PO DAILY #90 tab-caps 11/28/21 03/07/22 levothyroxine 75 mcg tablet 75 mcg PO DAILY #90 tab-caps 12/30/21 03/07/22 clonazepam 0.5 mg tablet (Klonopin) 0.25 mg PO BID PRN anxiety #10 tabs 02/09/22 03/07/22 lisinopril 20 mg tablet 10 mg PO DAILY #90 tabs 03/07/22 03/07/22 Previous Rx's Medication Instructions Recorded omeprazole 20 mg capsule,delayed 20 mg PO DAILY #90 tab-caps 11/28/21 release sertraline 100 mg tablet 100 mg PO DAILY #90 tab-caps 11/28/21 levothyroxine 75 mcg tablet 75 mcg PO DAILY #90 tab-caps 12/30/21 clonazepam 0.5 mg tablet (Klonopin) 0.25 mg PO BID PRN anxiety #10 tabs 02/09/22 lisinopril 20 mg tablet 10 mg PO DAILY #90 tabs 03/07/22 Allergies Allergy/AdvReac Type Severity Reaction Status Date / Time sulfamethoxazole AdvReac rash Verified 03/07/22 18:43 [From Bactrim] trimethoprim [From Bactrim] AdvReac rash Verified 03/07/22 18:43 General Stated Complaint: Dizzy/Sync [place]: 3 Review of Systems Constitutional Constitutional: Denies chills, Denies fever(s), Reports headache(s), Denies malaise and Denies weakness Eyes Eyes: Denies change in vision and Denies loss of vision ENT Ears, Nose, Mouth, and Throat: Denies vertigo, Reports dizziness, Reports headache(s) and Denies neck pain Cardiovascular Cardiovascular: Denies chest pain, Denies syncope, Reports rapid heart rate, Denies pedal edema, Reports palpitations and Denies dyspnea Respiratory Respiratory: Denies cough and Denies dyspnea Gastrointestinal Gastrointestinal: Denies abdominal pain, Denies nausea and Denies vomiting Genitourinary Genitourinary: Denies difficulty voiding, Denies dysuria, Denies urinary hesitancy and Reports urinary urgency Musculoskeletal Musculoskeletal: Denies abnormal gait, Denies back pain and Denies neck pain Integumentary/Breasts Skin/Breast: Denies rash Neurologic Neurologic: Reports as per HPI, Denies abnormal speech, Denies abnormal gait, Denies confusion, Denies vertigo, Reports dizziness, Denies syncope, Reports headache(s), Denies localized weakness, Denies loss of vision, Denies memory loss, Denies sensory deficit, Denies paresthesias and Denies weakness Psychiatric Psychiatric: Denies confusion, Denies memory loss and Reports panic attacks Endocrine Endocrine: Reports polyuria and Reports palpitations PFSH All Active Problems (Updated 03/07/22 @ 21:00 by George Nowak NP) Adverse effects of medication (Acute) UTI (urinary tract infection) (Acute) Panic attack (Acute) Abnormal lung sounds (Acute) Screening for colon cancer (Acute) Displaced fracture of left great toe (Acute) Essential hypertension (Acute) Encounter for annual physical exam (Acute) Elevated blood pressure reading without diagnosis of hypertension (Acute) Breast pain, left (Acute) Severe obstructive sleep apnea (Acute ~08/09/19) DR. SHIPMAN Sleep disorder (Acute) Shoulder pain, left (Acute) Breast pain, left (Acute) I spoke with the radiologist; she reviewed the mammogram from last month compared with previous mammograms. The breast looks fine. She suggested without focal tenderness that an ultrasound would be low yield Fatigue (Acute) possibly due to poor sleep/PATRICK Mucous polyp of cervix (Acute 08/22/07) Palpitations (Acute) Adult acne (Acute 10/23/14) rowan-oral Allergic rhinitis (Acute) post nasal drip with dry cough Anxiety (Acute) Depressive disorder (Acute) Gastroesophageal reflux disease (Acute 10/19/13) Hypothyroidism (Acute 10/19/13) call if symptoms worsen/persist doubt due to hormone imbalance, given recent testing Family History Mother , 74 Essential hypertension Hyperlipidemia Neoplasm LUNG Lung cancer Father , 69 Essential hypertension Heart disease Glioblastoma Sister Depression Brother No problems noted. Brother Depression Maternal Grandfather No problems noted. Paternal Grandfather No problems noted. Maternal Grandmother , 76? Heart disease Paternal Grandmother Uterine cancer Son No problems noted. Son No problems noted. Social History Smoking/Tobacco Use Status: Never Second Hand Exposure: Yes Smoking risk assessment performed?: Yes Alcohol Intake: current Alcohol Intake frequency: holidays/special occasions only Alcohol type: wine Drug use: Never Substance use type: does not use Caregiver/Support person: No Household members: spouse Housing: house Communication Needs: None Do you need help understanding health information?: Rarely Pets and animals: Yes Pets and animals: dog(s) Sexually active: No Do you think of yourself as: straight/heterosexual Current gender identity: female What is your relationship status?: How often do you talk on the phone with friends or family?: twice per week How often do you get together with friends or relatives?: once per week How often do you attend mu-ism or mosque services?: 1-3 times per year Do you belong to any clubs or organized social groups?: yes Panel score (0-1 are the most socially isolated patients): 3 What type of physical activity do you participate in: walking Duration: 15-30 minutes/day Frequency: daily Fide/Amish: Orthodoxy Special fide needs: No Seatbelt use: always Helmet use: Yes Helmet use: always Drive intox or ride w/intox driver/merchandiser: No Do you feel safe at home: Yes Do you feel safe in your relationship?: Yes Exam Const General: cooperative, healthy appearing, no acute distress and well groomed Orientation: alert, awake and oriented x3 HENMT Head: normal to inspection Ears: hearing grossly normal bilaterally and TM's normal bilaterally Mouth: oral mucosae normal and moist mucous membranes Throat: posterior oropharynx normal Eyes Visual Pillai: normal visual pillai by confrontation Alignment and Position: alignment normal Periorbital: periorbital findings normal Eyelids: eyelids normal Sclera: sclerae normal Cornea: corneas normal Pupils: PERRL EOM: EOM intact bilaterally Neck Neck: normal visual inspection, full ROM and no meningeal signs Resp Effort & Inspection: normal respiratory effort and able to speak in complete sentences Auscultation: clear to auscultation bilaterally Cardio Rate: regular rate Rhythm: regular rhythm Heart Sounds: S1 normal and S2 normal Neuro General: patient alert, patient awake, patient oriented x3, gait normal, tone normal, moves all extremities, CN's II-XI intact bilaterally and not confused Cognition: normal cognition Speech: speech normal Motor: muscle tone normal throughout, strength 5/5 throughout, no pronator drift, no movement abnormalities noted and no fasciculations Sensory Exam: no sensory deficits noted Coordination: Does not sway with eyes open, rapid alternating movement UE normal and rapid alternating movement LE normal Course Vital Signs Vital signs: Vital Signs Temperature 36.5 C 03/07/22 18:38 Pulse 96 H 03/07/22 18:38 Respiratory Rate 18 03/07/22 18:38 Blood Pressure 108/62 03/07/22 18:38 Pulse Oximetry 99 03/07/22 18:38 Temperature 36.5 C 03/07/22 18:38 Temperature Source Temporal Artery Scan 03/07/22 18:38 Pulse 96 H 03/07/22 18:38 Respiratory Rate 23 03/07/22 18:53 Respiratory Effort 03/07/22 18:53 Respiratory Depth Normal 03/07/22 18:53 Respiratory Pattern Normal 03/07/22 18:53 Blood Pressure 108/62 03/07/22 18:38 Blood Pressure Position Sitting 03/07/22 18:38 Pulse Oximetry 99 03/07/22 18:38 Oxygen Delivery Method Room Air 03/07/22 18:38 Oxygen Flow Rate 0 03/07/22 18:38 Lab/Test Results Lab/Test Results: 03/07/22 19:44 Urine - Reflex from Ua Urine Culture - Pending Laboratory Tests Range/Units 03/07/22 03/07/22 03/07/22 18:43 18:43 19:44 WBC (4.4-10.8) 10^3/uL 11.39 H RBC (3.93-5.22) 10^6/uL 4.64 Hgb (11.2-15.7) g/dL 13.5 Hct (36.0-46.0) % 40.8 MCV (80-95) fL 88 MCH (27.0-33.0) pg 29.1 MCHC (32.0-36.0) % 33.1 RDW (11.7-14.6) % 12.0 Plt Count (130-400) 10^3/uL 311 MPV (8.0-11.0) fL 10.5 Immature Gran % 0.4 Neutrophils % 64.2 Lymphocytes % 25.5 Monocytes % 6.8 Eosinophils % 2.5 Basophils % 0.6 Nucleated RBC % (0.0-0.3) % 0.0 Absolute Neutrophils (1.2-6.7) 10^3/uL 7.31 H Absolute Lymphocytes (1.2-3.4) 10^3/uL 2.90 Absolute Monocytes (0.1-0.8) 10^3/uL 0.77 Absolute Eosinophils (0.0-0.7) 10^3/uL 0.28 Absolute Basophils (0.0-0.2) 10^3/uL 0.07 Sodium (136-145) mmol/L 137 Potassium (3.5-5.1) mmol/L 3.7 Chloride (98-107) mmol/L 100 Carbon Dioxide (21.0-32.0) mmol/L 30.6 Anion Gap (3-11) mmol/L 6.4 BUN (7-18) mg/dL 14 Creatinine (0.55-1.02) mg/dL 0.9 Estimated GFR/1.73 m2 (mL/min/1.73m2) >= 60.00 Glucose (74-106) mg/dL 123 H Calcium (8.5-10.1) mg/dL 9.2 Magnesium (1.8-2.4) mg/dL 2.2 Total Bilirubin (0.2-1.0) mg/dL 0.2 AST (15-37) U/L 19 ALT (14-59) U/L 29 Alkaline Phosphatase (46-116) U/L 99 Total Protein (6.4-8.2) g/dL 8.1 Albumin (3.4-5.0) g/dL 3.9 TSH (0.36-3.74) uIU/mL 5.22 H Urine Color (Yellow) Yellow Urine Clarity (Clear) Clear Urine pH (5-8) 7.0 Ur Specific [place] (1.005-1.025) 1.015 Urine Protein (Negative) mg/dL Negative Urine Ketones (Negative) mg/dL Negative Urine Blood (Negative) Negative Urine Nitrite (Negative) Negative Urine Bilirubin (Negative) Negative Urine Urobilinogen (Up TO 0.2) EU/dL 0.2 Ur Leukocyte Esterase (Negative) Trace H Urine RBC (0-2) HPF 0-2 Urine WBC (0-5) HPF 10-20 H Ur Epithelial Cells (Negative) HPF Few Urine Crystals (Negative) HPF Negative Urine Bacteria (Negative) HPF Few Urine Casts (Negative) LPF Negative Urine Mucus (Negative) Negative Ur Culture Indicated? Yes Urine Glucose (Negative) mg/dL Negative
[2022-03-07 20:26] LABS: FREE T4 1.05 ng/dL (0.76-1.46)
[2022-03-07] MEDS: MacroBID 100 MG CAP PO (21:10)
== END 2022-03-07 21:11 | disposition home or self-care (01) ==
PROVIDERS: Emergency Provider Nurse Practitioner Family; PCP Family Medicine
DX: R42 Dizziness and giddiness (principal); T46.4X5A Adverse effect of angiotensin-converting-enzyme inhibitors, initial encounter; N39.0 Urinary tract infection, site not specified; B96.89 Other specified bacterial agents as the cause of diseases classified elsewhere; R00.0 Tachycardia, unspecified; F41.0 Panic disorder [episodic paroxysmal anxiety]
CPT/HCPCS: 80053; 80307; 93005; 96360; 99284; 81003; 81015; 83735; 84439; 84443; 85025; 87086; 93010; 99283

== ENCOUNTER 2022-06-17 03:30 | Outpatient (CLI) | payer OTHER, SELFPAY ==
[2022-06-17 15:08] LABS: Anion Gap 9.4 mmol/L (3-11); BUN 14 mg/dL (7-18); CO2 26.6 mmol/L (21.0-32.0); CREATININE 0.9 mg/dL (0.55-1.02); Calcium 9.5 mg/dL (8.5-10.1); Chloride 103 mmol/L (98-107); Estimated GFR 70.95 (mL/min/1.73m2); Glucose 109 mg/dL (74-106); Sodium 139 mmol/L (136-145); TSH (W/Ref FT4) 8.37 uIU/mL (0.36-3.74)
[2022-06-17 15:39] LABS: FREE T4 1.08 ng/dL (0.76-1.46)
== END 2022-06-17 03:31 | disposition home or self-care (01) ==
LOC: LOS 03:31
PROVIDERS: PCP Family Medicine; Visit Provider Nurse Practitioner Family
DX: I10 Essential (primary) hypertension (principal); R53.83 Other fatigue
CPT/HCPCS: 36415; 80048; 84439; 84443

== ENCOUNTER 2022-07-31 01:46 | Outpatient (CLI) | payer OTHER, SELFPAY ==
[2022-07-31 15:51] LABS: Hemoglobin A1C 5.7 % (<5.7)
== END 2022-07-31 01:47 | disposition home or self-care (01) ==
PROVIDERS: PCP Family Medicine; Visit Provider Family Medicine
DX: R73.9 Hyperglycemia, unspecified (principal)
CPT/HCPCS: 36415; 83036

== ENCOUNTER 2022-09-17 18:38 | Emergency (ER) | payer OTHER, SELFPAY ==
[2022-09-17] VITALS (35 sets, daily range): BP systolic 140–174; BP diastolic 73–105; PULSE 76–101; RESP 12–24; TEMP 36.1–36.6; O2SAT 95–97
--- NOTE | 2022-09-17 18:30 | RT.EKG_ITS ---
APPROVED REPORT Exam: Resting ECG Reason for Exam: high blood pressure Patient Location: E HR:83 bpm ECG Measurements Heart Rate 83 AXIS VT 157 P 57 QRSd 83 QRS 66 QT 371 T 26 QTc 437 Conclusion Sinus rhythm...normal P axis, V-rate 60- 99
--- NOTE | 2022-09-17 19:00 | DI.CT_ITS ---
Exam(s) CT HEAD WO EXAM: CT HEAD WO CLINICAL HISTORY: hypertensive, dizzy, mild headache. TECHNIQUE: Imaging Protocol: Axial computed tomography images with coronal and sagittal reformatted images were created and reviewed COMPARISON: No exams were available for comparison FINDINGS: Ventricles and Extra axial spaces: Normal in size and morphology for the patient's age. Hemorrhage: None. Cerebral parenchyma: Normal. Midline shift: None. Brainstem/Cerebellum: Normal. Calvarium: Normal. Visualized Paranasal sinuses/Mastoids: Clear. Soft Tissues: Unremarkable. IMPRESSION: No acute intracranial process. RADIATION DOSE DELIVERED: 606.2mGy.cm Total DLP DATA REPOSITORY: All CT scans at this facility are submitted to the National Radiology Data Registry (NRDR) Dose Index Registry (DIR) with the [employer] (ACR). RADIATION OPTIMIZATION: All CT scans at this facility use at least one of these dose optimization te chniques: automated exposure control; mA and/or kV adjustment per patient size (includes targeted exa ms where dose is matched to clinical indication); or iterative reconstruction.
[2022-09-17 19:02] LABS: Abs Immature Grans 0.05 10^3/uL (0.0-0.06); Absolute Basophil Count 0.05 10^3/uL (0.0-0.2); Absolute Eosinophil Count 0.23 10^3/uL (0.0-0.7); Absolute Lymphocyte Count 3.12 10^3/uL (1.2-3.4); Absolute Monocyte Count 0.74 10^3/uL (0.1-0.8); Absolute Neutrophil Count 5.64 10^3/uL (1.2-6.7); Basophils % 0.5; Eosinophils % 2.3; HGB 14.6 g/dL (11.2-15.7); Immature Grans % 0.5; Lymphocytes % 31.7; MCH 28.8 pg (27.0-33.0); MCHC 32.4 % (32.0-36.0); MCV 89 fL (80-95); MPV 10.2 fL (8.0-11.0); Monocytes % 7.5; Neutrophils % 57.5; Platelet Count 321 10^3/uL (130-400); RBC 5.07 10^6/uL (3.93-5.22); RDW-SD 38.9 fL; WBC 9.83 10^3/uL (4.4-10.8)
[2022-09-17] MEDS: hydroCHLOROthiazide 25 MG TAB PO (19:17)
--- NOTE | 2022-09-17 19:18 | ED.GENADUL_ITS ---
Discharge Plan Discharge Details Chief Complaint: Headache Primary Care Provider: Matthew Mcclendon ED Provider: Jeff Bond Home Meds and New Rx's Prescriptions: No Action losartan 50 mg tablet 25 - 50 mg PO DAILY Qty: 90 3RF Rx Instructions: start with 25 mg; increase to 50 mg/day after one week if BP not well controlled sertraline 100 mg tablet 100 mg PO DAILY Qty: 90 4RF omeprazole 20 mg capsule,delayed release(DR/EC) 20 mg PO DAILY Qty: 90 4RF levothyroxine 75 mcg tablet 75 mcg PO DAILY Qty: 90 3RF clonazepam [Klonopin] 0.5 mg tablet 0.25 mg PO BID PRN (Reason: anxiety) Qty: 10 0RF Rx Instructions: Take 1/2 tab for a total dose of 0.25 mg BID prn. Medical Decision Making 1922 --57-year-old female with history of hypertension, hypothyroidism, here with general malaise over the past 1 week, nauseous tonight and noted to have significantly elevated blood pressure from baseline at home. Patient does have mild headache. Patient is hypertensive. Neurologically intact. Concern for hypertensive urgency versus other. EKG was reviewed interpreted by me: Please see report, sinus rhythm, 83 bpm, normal axis, no STEMI, nondiagnostic. Will obtain CT of the head. Labs to assess renal function. I will initiate treatment with hydrochlorothiazide 25 mg orally. -- CT of the head interpreted by radiology: No acute intracranial abnormality. No mass-effect. Unremarkable white matter. No hemorrhage. HPI General Mode of arrival: ambulatory . Date/Time Provider Initiated Documentation: 09/17/22 18:46 . Limitations to Documentation: no limitations . Information obtained by: patient . HPI Narrative: 67-year-old female with multiple medical problems including hypertension, hypothyroidism, here with chief complaint of elevated blood pressure. Patient notes over the past 1 week she is been experiencing general malaise with intermittent dizziness, generalized weakness, fatigue. Patient notes her blood pressure is usually in the 130s and today she checked it and it was 180. She did have some nausea tonight. No abdominal pain. No chest pain. No shortness of breath. No numbness. She does note intermittent tingling in her left foot recently. This has happened in the past when she was changing blood pressure medication. No recent changes to her antihypertensive. She has been on losartan for the past 4 to 5 weeks. Related Data Home Medications Medication Instructions Recorded Confirmed omeprazole 20 mg capsule,delayed 20 mg PO DAILY #90 tab-caps 11/28/21 09/17/22 release sertraline 100 mg tablet 100 mg PO DAILY #90 tab-caps 11/28/21 09/17/22 levothyroxine 75 mcg tablet 75 mcg PO DAILY #90 tab-caps 12/30/21 09/17/22 clonazepam 0.5 mg tablet (Klonopin) 0.25 mg PO BID PRN anxiety #10 tabs 07/04/22 09/17/22 losartan 50 mg tablet 25 - 50 mg PO DAILY #90 tabs 08/12/22 09/17/22 Previous Rx's Medication Instructions Recorded omeprazole 20 mg capsule,delayed 20 mg PO DAILY #90 tab-caps 11/28/21 release sertraline 100 mg tablet 100 mg PO DAILY #90 tab-caps 11/28/21 levothyroxine 75 mcg tablet 75 mcg PO DAILY #90 tab-caps 12/30/21 clonazepam 0.5 mg tablet (Klonopin) 0.25 mg PO BID PRN anxiety #10 tabs 07/04/22 losartan 50 mg tablet 25 - 50 mg PO DAILY #90 tabs 08/12/22 Allergies Allergy/AdvReac Type Severity Reaction Status Date / Time lisinopril AdvReac Intermediate cough Verified 09/17/22 18:50 sulfamethoxazole AdvReac rash Verified 09/17/22 18:50 [From Bactrim] trimethoprim [From Bactrim] AdvReac rash Verified 09/17/22 18:50 General Stated Complaint: Headache [place]: 3 Review of Systems All systems reviewed & are unremarkable except as noted in HPI and below Constitutional Constitutional: Denies fever(s) Cardiovascular Cardiovascular: Denies chest pain and Denies dyspnea Respiratory Respiratory: Denies dyspnea PFSH All Active Problems Non-cardiac chest pain (Acute) Hypertension (Chronic) Abnormal lung sounds (Acute) Screening for colon cancer (Acute) Displaced fracture of left great toe (Acute) Essential hypertension (Acute) Encounter for annual physical exam (Acute) Elevated blood pressure reading without diagnosis of hypertension (Acute) Breast pain, left (Acute) Severe obstructive sleep apnea (Acute ~08/09/19) DR. SHIPMAN Sleep disorder (Acute) Shoulder pain, left (Acute) Breast pain, left (Acute) I spoke with the radiologist; she reviewed the mammogram from last month compared with previous mammograms. The breast looks fine. She suggested without focal tenderness that an ultrasound would be low yield Fatigue (Acute) possibly due to poor sleep/PATRICK Mucous polyp of cervix (Acute 08/22/07) Palpitations (Acute) Adult acne (Acute 10/23/14) rowan-oral Allergic rhinitis (Acute) post nasal drip with dry cough Anxiety (Acute) Depressive disorder (Acute) Gastroesophageal reflux disease (Acute 10/19/13) Hypothyroidism (Acute 10/19/13) call if symptoms worsen/persist doubt due to hormone imbalance, given recent testing Family History Mother , 74 Essential hypertension Hyperlipidemia Neoplasm LUNG Lung cancer Father , 69 Essential hypertension Heart disease Glioblastoma Sister Depression Brother No problems noted. Brother Depression Maternal Grandfather No problems noted. Paternal Grandfather No problems noted. Maternal Grandmother , 76? Heart disease Paternal Grandmother Uterine cancer Son No problems noted. Son No problems noted. Social History Smoking/Tobacco Use Status: Never Second Hand Exposure: Yes Smoking risk assessment performed?: Yes Alcohol Intake: current Alcohol Intake frequency: holidays/special occasions only Alcohol type: wine Drug use: Never Substance use type: does not use Caregiver/Support person: No Household members: spouse Housing: house Communication Needs: None Do you need help understanding health information?: Rarely Pets and animals: Yes Pets and animals: dog(s) Sexually active: No Do you think of yourself as: straight/heterosexual Current gender identity: female What is your relationship status?: How often do you talk on the phone with friends or family?: twice per week How often do you get together with friends or relatives?: once per week How often do you attend christian or yazdanism services?: 1-3 times per year Do you belong to any clubs or organized social groups?: yes Panel score (0-1 are the most socially isolated patients): 3 What type of physical activity do you participate in: walking Duration: 15-30 minutes/day Frequency: daily Fdie/Caodaism: Shinto Special fide needs: No Seatbelt use: always Helmet use: Yes Helmet use: always Drive intox or ride w/intox rental car ferry driver: No Do you feel safe at home: Yes Do you feel safe in your relationship?: Yes Exam Const General: cooperative and no acute distress HENMT Mouth: moist mucous membranes Throat: posterior oropharynx normal Eyes Conjunctivae: normal conjunctivae Sclera: normal sclerae Neck Neck: supple Resp Auscultation: clear to auscultation bilaterally, no rales, no rhonchi and no wheezes Cardio Rate: regular rate and not tachycardic Rhythm: regular rhythm GI Palpation: soft, not firm, no guarding, no masses, not rigid and nontender Skin General skin exam: no rashes or lesions noted Neuro General: patient alert, patient awake, patient oriented x3 and tone normal Cognition: normal cognition Speech: speech normal Motor: strength 5/5 throughout Sensory Exam: no sensory deficits noted Coordination: [id number] test normal, urgi-kr-oica test normal and other (rapid alt movement nl) Extrem General: no edema Psych Appearance: grossly normal Mental Status: mental status grossly normal Speech and Movement: speech and movement normal Course Vital Signs Vital signs: Vital Signs Temperature 36.6 C 09/17/22 18:41 Pulse 100 H 09/17/22 18:41 Respiratory Rate 15 09/17/22 18:41 Blood Pressure 174/105 H 09/17/22 18:41 Pulse Oximetry 95 09/17/22 18:41 Temperature 36.6 C 09/17/22 18:41 Pulse 100 H 09/17/22 18:41 Respiratory Rate 15 09/17/22 18:41 Respiratory Effort 09/17/22 18:46 Blood Pressure 174/105 H 09/17/22 18:41 Blood Pressure Position Sitting 09/17/22 18:41 Pulse Oximetry 95 09/17/22 18:41 Oxygen Delivery Method Room Air 09/17/22 18:41 Oxygen Flow Rate 0 09/17/22 18:41 Pain Level 3 09/17/22 18:47 Lab/Test Results Lab/Test Results: Laboratory Tests Range/Units 09/17/22 18:50 WBC (4.4-10.8) 10^3/uL 9.83 RBC (3.93-5.22) 10^6/uL 5.07 Hgb (11.2-15.7) g/dL 14.6 Hct (36.0-46.0) % 45.0 MCV (80-95) fL 89 MCH (27.0-33.0) pg 28.8 MCHC (32.0-36.0) % 32.4 RDW (11.7-14.6) % 12.0 Plt Count (130-400) 10^3/uL 321 MPV (8.0-11.0) fL 10.2 Immature Gran % 0.5 Neutrophils % 57.5 Lymphocytes % 31.7 Monocytes % 7.5 Eosinophils % 2.3 Basophils % 0.5 Nucleated RBC % (0.0-0.3) % 0.0 Absolute Neutrophils (1.2-6.7) 10^3/uL 5.64 Absolute Lymphocytes (1.2-3.4) 10^3/uL 3.12 Absolute Monocytes (0.1-0.8) 10^3/uL 0.74 Absolute Eosinophils (0.0-0.7) 10^3/uL 0.23 Absolute Basophils (0.0-0.2) 10^3/uL 0.05
[2022-09-17 19:22] LABS: ALT 23 U/L (14-59); AST 20 U/L (15-37); Albumin 4.3 g/dL (3.4-5.0); Alkaline Phosphatase 121 U/L (46-116); Anion Gap 7.5 mmol/L (3-11); BUN 19 mg/dL (7-18); Bilirubin, Total 0.3 mg/dL (0.2-1.0); CO2 30.5 mmol/L (21.0-32.0); Calcium 9.5 mg/dL (8.5-10.1); Chloride 100 mmol/L (98-107); Estimated GFR 62.52 (mL/min/1.73m2); Glucose 107 mg/dL (74-106); Magnesium 2.1 mg/dL (1.8-2.4); Sodium 138 mmol/L (136-145); Total Protein 8.9 g/dL (6.4-8.2); Troponin I < 50 ng/L (<or=60)
--- NOTE | 2022-09-17 19:35 | DI.VRAD_ITS ---
PROCEDURE INFORMATION: Exam: CT Head Without Contrast Exam date and time: 09/17/2022 7:24 PM Age: 67 years old Clinical indication: Other: Hypertensive, dizzy, mild headache TECHNIQUE: Imaging protocol: Computed tomography of the head without contrast. Radiation optimization: All CT scans at this facility use at least one of these dose optimization techniques: automated exposure control; mA and/or kV adjustment per patient size (includes targeted exams where dose is matched to clinical indication); or iterative reconstruction. COMPARISON: MR BRAIN WO 05/29/2020 2:01 PM FINDINGS: Brain: Mild volume loss. No hemorrhage. Unremarkable white matter. No mass effect. Cerebral ventricles: No ventriculomegaly. Paranasal sinuses: Visualized sinuses are unremarkable. No fluid levels. Mastoid air cells: Visualized mastoid air cells are well aerated. Bones/joints: Unremarkable. No acute fracture. Soft tissues: Unremarkable. IMPRESSION: No acute intracranial abnormality. Dictated and Authenticated by: Kodak Breaux MD. Ordering:SANDRA Aguilar MD
[2022-09-17 19:36] LABS: Source Nasal/Nares
[2022-09-17 19:44] LABS: TSH (W/Ref FT4) 14.71 uIU/mL (0.36-3.74)
[2022-09-17 20:08] LABS: COVID-19 PCR Negative (Negative)
[2022-09-17 20:19] LABS: FREE T4 1.08 ng/dL (0.76-1.46)
--- NOTE | 2022-09-17 20:26 | W.EDPROG ---
Date of service: 09/17/22 Time of Service: 20:00 Medical Decision Making 1999 --please see Dr. Bond's note for initial presentation, exam and plan. Case endorsed to follow-up on free T4. If patient continues to feel better and BP improved, plan for discharge home on hydrochlorothiazide. If patient remains symptomatic and blood pressure remains high, likely admission for monitoring and BP control. 2144 --patient reassessed and her blood pressure is much improved, now 140/73. She feels much better and denies any headache or dizziness at this time. She states she has not eaten or drank since this afternoon. She is declining any food but was given a small bolus of IV fluids and will give oral fluids and attempt to ambulate. 2219 --patient denied dizziness upon standing but did admit to return of headache. Recheck blood pressure 163/78. She would like to go home. We will give additional fluids and IV Tylenol and Toradol for headache and reassess. 2299 --patient declined the IV medications and fluids. Apparently her IV had been already removed by nursing and she does not want another one placed. She was thinking that she would take oral Tylenol. We will give a dose of oral Tylenol and recheck her blood pressure. 0 --patient reassessed and she feels better and would like to go home. Blood pressure slightly improved at 156/77. A prescription for hydrochlorothiazide has been sent electronically to her pharmacy. She is advised to call her PCP office tomorrow for follow-up within the next 1-2 weeks. Usual and customary return precautions given prior to discharge. Medical Records Medical records reviewed: Yes I reviewed the patient's medical records. Imaging Data Radiologic Study: Radiologist's impression: CT Head Without Contrast Exam date and time: 09/17/2022 7:24 PM Age: 67 years old Clinical indication: Other: Hypertensive, dizzy, mild headache TECHNIQUE: Imaging protocol: Computed tomography of the head without contrast. Radiation optimization: All CT scans at this facility use at least one of these dose optimization techniques: automated exposure control; mA and/or kV adjustment per patient size (includes targeted exams where dose is matched to clinical indication); or iterative reconstruction. COMPARISON: MR BRAIN WO 05/29/2020 2:01 PM FINDINGS: Brain:? Mild volume loss. No hemorrhage. Unremarkable white matter. No mass effect. Cerebral ventricles: No ventriculomegaly. Paranasal sinuses: Visualized sinuses are unremarkable. No fluid levels. Mastoid air cells: Visualized mastoid air cells are well aerated. Bones/joints: Unremarkable. No acute fracture. Soft tissues: Unremarkable. IMPRESSION: No acute intracranial abnormality. Lab Data Lab results reviewed: Yes I reviewed the patient's lab results. Labs: Laboratory Tests Range/Units 09/17/22 09/17/22 09/17/22 18:50 18:50 18:50 WBC (4.4-10.8) 10^3/uL 9.83 RBC (3.93-5.22) 10^6/uL 5.07 Hgb (11.2-15.7) g/dL 14.6 Hct (36.0-46.0) % 45.0 MCV (80-95) fL 89 MCH (27.0-33.0) pg 28.8 MCHC (32.0-36.0) % 32.4 RDW (11.7-14.6) % 12.0 Plt Count (130-400) 10^3/uL 321 MPV (8.0-11.0) fL 10.2 Immature Gran % 0.5 Neutrophils % 57.5 Lymphocytes % 31.7 Monocytes % 7.5 Eosinophils % 2.3 Basophils % 0.5 Nucleated RBC % (0.0-0.3) % 0.0 Absolute Neutrophils (1.2-6.7) 10^3/uL 5.64 Absolute Lymphocytes (1.2-3.4) 10^3/uL 3.12 Absolute Monocytes (0.1-0.8) 10^3/uL 0.74 Absolute Eosinophils (0.0-0.7) 10^3/uL 0.23 Absolute Basophils (0.0-0.2) 10^3/uL 0.05 Sodium (136-145) mmol/L 138 Potassium (3.5-5.1) mmol/L 4.0 Chloride (98-107) mmol/L 100 Carbon Dioxide (21.0-32.0) mmol/L 30.5 Anion Gap (3-11) mmol/L 7.5 BUN (7-18) mg/dL 19 H Creatinine (0.55-1.02) mg/dL 1.0 Est GFR (CKD-EPI 2020) (mL/min/1.73m2) 62.52 Glucose (74-106) mg/dL 107 H Calcium (8.5-10.1) mg/dL 9.5 Magnesium (1.8-2.4) mg/dL 2.1 Total Bilirubin (0.2-1.0) mg/dL 0.3 AST (15-37) U/L 20 ALT (14-59) U/L 23 Alkaline Phosphatase (46-116) U/L 121 H Troponin I (<or=60) ng/L < 50 Total Protein (6.4-8.2) g/dL 8.9 H Albumin (3.4-5.0) g/dL 4.3 TSH (0.36-3.74) uIU/mL 14.71 H Free T4 (0.76-1.46) ng/dL 1.08 COVID-19 Source SARS-CoV-2 (PCR) (Negative) Range/Units 09/17/22 19:30 WBC (4.4-10.8) 10^3/uL RBC (3.93-5.22) 10^6/uL Hgb (11.2-15.7) g/dL Hct (36.0-46.0) % MCV (80-95) fL MCH (27.0-33.0) pg MCHC (32.0-36.0) % RDW (11.7-14.6) % Plt Count (130-400) 10^3/uL MPV (8.0-11.0) fL Immature Gran % Neutrophils % Lymphocytes % Monocytes % Eosinophils % Basophils % Nucleated RBC % (0.0-0.3) % Absolute Neutrophils (1.2-6.7) 10^3/uL Absolute Lymphocytes (1.2-3.4) 10^3/uL Absolute Monocytes (0.1-0.8) 10^3/uL Absolute Eosinophils (0.0-0.7) 10^3/uL Absolute Basophils (0.0-0.2) 10^3/uL Sodium (136-145) mmol/L Potassium (3.5-5.1) mmol/L Chloride (98-107) mmol/L Carbon Dioxide (21.0-32.0) mmol/L Anion Gap (3-11) mmol/L BUN (7-18) mg/dL Creatinine (0.55-1.02) mg/dL Est GFR (CKD-EPI 2020) (mL/min/1.73m2) Glucose (74-106) mg/dL Calcium (8.5-10.1) mg/dL Magnesium (1.8-2.4) mg/dL Total Bilirubin (0.2-1.0) mg/dL AST (15-37) U/L ALT (14-59) U/L Alkaline Phosphatase (46-116) U/L Troponin I (<or=60) ng/L Total Protein (6.4-8.2) g/dL Albumin (3.4-5.0) g/dL TSH (0.36-3.74) uIU/mL Free T4 (0.76-1.46) ng/dL COVID-19 Source Nasal/Nares SARS-CoV-2 (PCR) (Negative) Negative ECG Data Attestation: I personally reviewed and interpreted this ECG (s) as follows: Interpretation: Rate of 83, sinus, normal axis, no STEMI. Sign Out Sign Out Data: Sign Out Comment: followup free t4. reassess patient for dispo. if improved BP and resolution of sxs consider discharge on HCTZ. Last updated by Jeff Bond MD at 09/17/22 20:22 Discharge Plan Disposition Patient Disposition: Home Condition: Improving Discharge Details Clinical Impression: Hypertension, Headache, Dizziness Primary Care Provider: Matthew Mcclendon ED Provider: Blank Broderick Home Meds and New Rx's Prescriptions: New hydrochlorothiazide 12.5 mg tablet 12.5 mg PO DAILY Qty: 30 0RF Continued losartan 50 mg tablet 25 - 50 mg PO DAILY Qty: 90 3RF Rx Instructions: start with 25 mg; increase to 50 mg/day after one week if BP not well controlled sertraline 100 mg tablet 100 mg PO DAILY Qty: 90 4RF omeprazole 20 mg capsule,delayed release(DR/EC) 20 mg PO DAILY Qty: 90 4RF levothyroxine 75 mcg tablet 75 mcg PO DAILY Qty: 90 3RF clonazepam [Klonopin] 0.5 mg tablet 0.25 mg PO BID PRN (Reason: anxiety) Qty: 10 0RF Rx Instructions: Take 1/2 tab for a total dose of 0.25 mg BID prn. Discharge Instructions Instructions: Hypertension (ED), Dizziness (ED), General Headache (ED) Additional Instructions: Your blood tests, EKG and imaging of your head today are reassuring and show no evidence of acute concerning or significant findings. Your thyroid-stimulating hormone blood test was elevated but your thyroid hormone level was within normal limits. You can discuss these results with your primary care doctor and whether to make any adjustments in your thyroid medication. Drink plenty of fluids and get plenty of rest. Alternate tylenol and motrin as needed and directed for pain. Your blood pressure has improved while here in the emergency department. Continue all of your regular medications including your losartan as directed. A prescription for a new blood pressure medication called Hydrochlorothiazide has been sent electronically to your pharmacy to start taking tomorrow in addition to your losartan. Call your primary care doctor's office tomorrow to schedule a follow-up appointment for reevaluation within the next 1 to 2 weeks. Return immediately to the emergency department if you develop any worsening or new concerning symptoms. Discharge Data Discharge Date/Time-TO BE ENTERED AT DEPARTURE: 09/17/22 23:48 Discharge Physician: Blank Broderick
[2022-09-17] MEDS: Normal Saline 250 ML IV (21:02)
[2022-09-17] MEDS: Acetaminophen 500 MG TAB 1000 MG PO (23:05)
== END 2022-09-17 23:48 | disposition home or self-care (01) ==
PROVIDERS: Student in an Organized Health Care Education/Training Program; Emergency Provider Physician Assistant; PCP Family Medicine
DX: I10 Essential (primary) hypertension (principal); R94.6 Abnormal results of thyroid function studies
CPT/HCPCS: 36415; 80053; 87635; 93005; 96361; 96374; 96375; 99284; 70450; 83735; 84439; 84443; 84484; 85025; 93010

== ENCOUNTER 2022-11-06 06:54 | Day surgery (SDC) | payer OTHER, SELFPAY ==
--- NOTE | 2022-11-05 13:36 | W.ANESPRE ---
General Info Date of Service Date Performed: 11/06/22 Height: 5 ft 5 in Weight: 74.389 kg Body Mass Index (BMI): 27.3 Surgical Procedure: Operation Date: 11/06/22 08:20 Proposed Procedure Side Surgeon sandro Dang MD Meds Allergies and Home Medications Allergies Allergy/AdvReac Type Severity Reaction Status Date / Time hydrochlorothiazide AdvReac Intermediate lip Verified 11/06/22 07:04 tingling lisinopril AdvReac Intermediate cough Verified 11/06/22 07:04 sulfamethoxazole AdvReac rash Verified 11/06/22 07:04 [From Bactrim] trimethoprim [From Bactrim] AdvReac rash Verified 11/06/22 07:04 Home Medication Medication Instructions Recorded omeprazole 20 mg capsule,delayed 20 mg PO DAILY #90 tab-caps 11/28/21 release sertraline 100 mg tablet 100 mg PO DAILY #90 tab-caps 11/28/21 levothyroxine 75 mcg tablet 75 mcg PO DAILY #90 tab-caps 12/30/21 clonazepam 0.5 mg tablet (Klonopin) 0.25 mg PO BID PRN anxiety #10 tabs 07/04/22 multivitamin 1 tab PO DAILY 10/27/22 losartan 50 mg tablet 25 - 50 mg PO HS 11/05/22 metoprolol succinate 25 mg 25 mg PO HS 11/05/22 tablet,extended release 24 hr Current Visit Medications: Current Medications Generic Name Dose Route Start Last Admin Trade Name Freq PRN Reason Stop Dose Admin Ringer's Solution 1,000 mls @ 80 mls/hr 11/06/22 06:00 IV 11/06/22 23:59 INFUSION ERIKA IV Miscellaneous Supplies 1 each 11/06/22 06:00 Iv Access IV 11/06/22 23:59 DIRECTED ERIKA Sodium Chloride 0 ml 11/06/22 06:00 Normal Saline Flush 10 Ml Syr IV 11/06/22 23:59 PRN PRN Sodium Chloride 0 ml 11/06/22 06:00 Normal Saline 10 Ml Vial IJ 11/06/22 23:59 DIRECTED PRN Sterile Water 0 ml 11/06/22 06:00 Water,Injection,Sterile 10 Ml Vial IJ 11/06/22 23:59 DIRECTED PRN PFSH Active Problems Active Problems: Problem Status Onset Code Non-cardiac chest pain R07.89 Abnormal lung sounds R09.89 Screening for colon cancer Z12.11 Displaced fracture of left great toe S92.402A Essential hypertension I10 Encounter for annual physical exam Z00.00 Elevated blood pressure reading without diagnosis of hypertension R03.0 Breast pain, left N64.4 Shoulder pain, left M25.512 Breast pain, left N64.4 Fatigue R53.83 Mucous polyp of cervix 08/22/07 N84.1 Palpitations R00.2 Adult acne 10/23/14 L70.9 Allergic rhinitis J30.9 Medical History Medical History Anxiety Depressive disorder Gastroesophageal reflux disease (10/19/13) Hypertension Hypothyroidism (10/19/13) call if symptoms worsen/persist doubt due to hormone imbalance, given recent testing Severe obstructive sleep apnea (~08/09/19) DR. SHIPMAN Sleep disorder Tobacco Smoking/Tobacco Use Status: Never Passive smoking exposure: Yes Second hand exposure: Yes Alcohol Alcohol Intake: current Alcohol intake frequency: holidays/special occasions only Alcohol type: wine Substance Use Substance use: Never Substance use type: does not use Vital Signs and Lab Results Vital Signs Most Recent Vital Signs in EMR: Temp Pulse Resp BP Pulse Ox 36.5 C 89 16 132/91 H 96 11/06/22 07:06 11/06/22 07:06 11/06/22 07:06 11/06/22 07:06 11/06/22 07:06 Lab Results Blood Type / Crossmatch: No Data to Display Complete Blood Count: No Data to Display Complete Metabolic Panel: No Data to Display Liver Function Panel: No Data to Display Coagulation Panel: No Data to Display Cardiac Panel: No Data to Display Arterial Blood Gas: No Data to Display Venous Blood Gas: No Data to Display Pancreas Panel: No Data to Display Thyroid Panel: No Data to Display Infectious Disease: No Data to Display Blood Cultures: No Data to Display Toxicology Panel: No Data to Display Imaging and Studies Imaging and Studies Study information below may be from another EMR and interpreted by another provider. Please see original notes in EMR for more complete details. EKG Summary: 09/14: sinus. Anesthesia Assessment and Plan Anesthesia History Personal History: No History of Anesthesia Complications Family History: No Family History of Anesthesia Complications Exercise Tolerance Exercise Tolerance: Metabolic Equivalents>4 Cardiac & Pulmonary Exam Cardiac Exam: Normal S1/S2 Heart Sounds Pulmonary Exam: Clear Bilateral Breath Sounds Implantable Cardiac Device Does patient have a Pacemaker or an ICD?: No Airway Exam Known Difficult Airway: No Mallampati Class: 4 Mouth Opening: Narrow (< 3cm) Thyromental Distance: Less than 3 cm Neck Range of Motion: Limited ROM Neck Circumference: Normal Teeth Condition: Normal Dentition ASA Classification ASA Score: ASA 2 Emergency Case?: No NPO Status NPO Status: NPO Clears >2 hours, Solids >8 hours Anesthesia Plan Resuscitation Status: Full Code Anesthesia Technique: General Anesthesia Airway Planned: Natural Airway Monitors Used: Standard Monitors Preoperative Comments:: 67 yo female for screening colo. Sig PMHx: HTN (metoprolol, losartan), dizziness (HCTZ d/c'd), hypothyroid (on replacement), PATRICK, GERD, never smoker, occ ETOH.
--- NOTE | 2022-11-05 21:07 | W.PM.DSUDISC ---
Date of service: 11/06/22 Time of Service: 08:52 Discharge Plan Disposition Patient Disposition: Home Condition: Good Discharge Details Reason For Visit: Colonoscopy Attending Provider: Andre Dang Primary Care Provider: Matthew Mcclendon Home Meds and New Rx's Prescriptions: Continued multivitamin Tablet 1 tab PO DAILY sertraline 100 mg tablet 100 mg PO DAILY Qty: 90 4RF omeprazole 20 mg capsule,delayed release(DR/EC) 20 mg PO DAILY Qty: 90 4RF levothyroxine 75 mcg tablet 75 mcg PO DAILY Qty: 90 3RF clonazepam [Klonopin] 0.5 mg tablet 0.25 mg PO BID PRN (Reason: anxiety) Qty: 10 0RF Rx Instructions: Take 1/2 tab for a total dose of 0.25 mg BID prn. losartan 50 mg tablet 25 - 50 mg PO HS Rx Instructions: start with 25 mg; increase to 50 mg/day after one week if BP not well controlled metoprolol succinate 25 mg tablet extended release 24 hr 25 mg PO HS Discontinued bisacodyl [Dulcolax (bisacodyl)] 5 mg tablet,delayed release (DR/EC) 5 mg PO ONCE Qty: 4 0RF Rx Instructions: Take according to provider's instructions for colonoscopy prep. polyethylene glycol 3350 17 gram/dose powder 17 g PO ONCE Qty: 238 0RF Rx Instructions: To be taken as directed by prescriber's office for colonoscopy prep. Discharge Instructions Additional Instructions: Carina, I was able to complete your colonoscopy without any difficulty today. The quality of your prep was excellent. I did not see any signs of tumors or polyps. I recommend you have another screening colonoscopy in 10 years. 1. If tolerated, consume a soft, low fiber diet for 1-2 days. 2[address] Do not drive, drink alcohol, operate machinery, make critical decisions, or do activities that require coordination or balance for 24 hours. 3. Because air was put into your colon during the procedure, expelling air from your rectum (passing gas or farting) is normal. 4. You may not have a bowel movement for 1-3 days because of the colonoscopy prep. This is normal. 5. Go directly to the emergency room if you notice any of the following: Develop chills (warm to touch), or if you have a thermometer and your temperature is above 101 Difficulty breathing or difficultly swallowing Persistent vomiting Severe abdominal pain, other than gas cramps Severe chest pain Black, tarry stools Any bleeding ? exceeding one tablespoon 6. Call your physician if the site where your intravenous was started becomes red, swollen, painful, and warm to touch. 7. Your physician has reviewed your pre-procedure medications. Please continue to take those medications as previously ordered. You will be given specific information/education regarding any changes to your medications before leaving. Activity:: Activity as Tolerated Diet:: As Tolerated Discharge Orders Discharge Orders: Discharge Order (Routine); Ordered 11/05/22 Ordered By: Andre Dang DS: Diagnosis Discharge Diagnosis (1) Screening for colon cancer: Status: Acute Asessment and Plan: Carina, your colonoscopy was negative today. You should have another one in 10 years.
--- NOTE | 2022-11-05 21:08 | W.COLOREPORT ---
Date of service: 11/06/22 Time of Service: 08:52 Colonoscopy Report Date of procedure: 11/06/22 Pre-op diagnosis general: Screening colonoscopy Post-op diagnosis procedure note: other (Normal screening colonoscopy) Procedure: Colonoscopy Surgeon: Andre Dang Anesthesia Type: General:No Airway Estimated blood loss (mL): 0 Pathology: none sent Complications: None Disposition: same day Indications: Carina is 67 years old and she is here for her next screening colonoscopy Prep: Miralax/Dulcolax Procedure Start Time: 08:20 Procedure End Time: 08:35 Retraction Time: 9 Findings: Normal colonoscopy Procedure Description: After the induction of monitored anesthetic care, and with the patient in left lateral decubitus position, I began by performing an external anorectal exam.? Perineum and skin were normal, as was the anal verge.? There was no evidence of external hemorrhoids.? Next, I performed a digital rectal exam.? I did not appreciate any abnormal findings.? Next, I advanced a colonoscope into the rectal vault.? I performed retroflexion.? This appeared normal.? Using insufflation, I then advanced the colonoscope beyond the rectal folds and into the sigmoid colon before advancing towards the cecum.? The quality of the prep was excellent.? The scope was noted to be in the cecum by identification of the ileocecal valve and appendiceal orifice.? I then began withdrawing the colonoscope using repeated irrigation as necessary for full evaluation of the colonic mucosa. ?Once the scope was withdrawn to the level of the rectum, great care was taken to examine portions of the rectal folds.? I did not see any signs of polyps or tumors. finally, the scope was withdrawn and the patient was brought to the same-day surgery recovery unit as the anesthetic wore off. ?The findings and instructions were shared with the patient prior to discharge.
[2022-11-06 07:06] VITALS: BP 132/91; PULSE 89; RESP 16; TEMP 36.5; O2SAT 96
[2022-11-06] MEDS: Lactated Ringers 1,000 ML 80 ML IV (07:23)
[2022-11-06 07:40] VITALS: BMI 27.3
[2022-11-06 08:40] VITALS: BP 130/73; PULSE 79; RESP 16; TEMP 36.7; O2SAT 99
--- NOTE | 2022-11-06 08:45 | W.ANESPOSTOP ---
Postoperative Evaluation Date, Time and Location Date Performed: 11/06/22 Time Performed: 08:45 Patient Location: Day Surgery Unit Vital Signs Most Recent Imported Vital Signs: Most Recent Vital Signs Temp Pulse Resp BP Pulse Ox 36.7 C 79 16 130/73 99 11/06/22 08:40 11/06/22 08:40 11/06/22 08:40 11/06/22 08:40 11/06/22 08:40 Pain Score Most Recent Pain Score: Most Recent Pain Score Pain Level 0 11/06/22 08:40 Assessment Mental Status: Awake (Alert & Oriented to Patient Baseline) Airway and Respiratory Function: Patent airway with normal (patient baseline) respiratory exam Cardiovascular Function: Hemodynamically Stable Hydration Status: Adequately Hydrated Nausea & Vomiting: No Nausea or Vomiting Pain: Pt. Denies Any Pain Peripheral Nerve Block: Patient did not receive a nerve block
[2022-11-06 09:03] VITALS: BP 137/80; PULSE 74; RESP 16; TEMP 36.6; O2SAT 100
== END 2022-11-06 09:23 | disposition home or self-care (01) ==
PROVIDERS: PCP Family Medicine; Visit Provider Surgery
PROC: 0DJD8ZZ Inspection of Lower Intestinal Tract, Via Natural or Artificial Opening Endoscopic (ICD-10-PCS; CPT 45378; principal; 2022-11-06 08:15)
DX: Z12.11 Encounter for screening for malignant neoplasm of colon (principal); K21.9 Gastro-esophageal reflux disease without esophagitis; E03.9 Hypothyroidism, unspecified
CPT/HCPCS: 45378

== ENCOUNTER 2022-12-28 03:14 | Outpatient (CLI) | payer OTHER, SELFPAY ==
[2022-12-28 12:31] LABS: Calculated LDL 168 mg/dL (<100); Cholesterol 236 mg/dL (<200); HDL Cholesterol 52 mg/dL (40-60); TSH (W/Ref FT4) 3.31 uIU/mL (0.36-3.74); Total Protein 7.8 g/dL (6.4-8.2); Triglyceride 83 mg/dL (<150)
[2022-12-28 12:47] LABS: Vitamin D 25 Total 49.2 ng/mL (30-100)
== END 2022-12-28 03:15 | disposition home or self-care (01) ==
LOC: LOS 03:14
PROVIDERS: PCP Family Medicine; Visit Provider Family Medicine
DX: E78.5 Hyperlipidemia, unspecified (principal); E03.9 Hypothyroidism, unspecified; R77.8 Other specified abnormalities of plasma proteins; G40.909 Epilepsy, unspecified, not intractable, without status epilepticus; Z79.899 Other long term (current) drug therapy
CPT/HCPCS: 36415; 80061; 82306; 84155; 84443

== ENCOUNTER 2023-01-08 00:35 | Outpatient (CLI) | payer OTHER, SELFPAY ==
--- NOTE | 2023-01-08 08:04 | DI.MAMMO_ITS ---
Exam(s) MAMMO SCREENING EXAM: MAMMO SCREENING CLINICAL HISTORY: screening,z12.39 TECHNIQUE: Bilateral full field digital CC and MLO mammographic images were obtained with 3D tomosyn thesis and utilizing computer aided detection (CAD). COMPARISON: Available for comparison. FINDINGS: Masses/Architectural Distortion: There is a new well-circumscribed 4 mm nodule in the medial left candy ast on the craniocaudad view. No suspicious areas of architectural distortion are seen. Microcalcifications: No suspicious pleomorphic-type are seen. Skin Thickening/Nipple Retraction: None. IMPRESSION: 1. New 4 mm nodule in the medial left breast. 2. Further evaluation with a spot compression view and a limited left breast ultrasound is recommende d for further evaluation. BI-RADS Category 0 - Assessment Incomplete: Need additional imaging evaluation Breast Density - Category B - Scattered areas of fibroglandular density Breast density category C or D implies that the patient has dense breast tissue. Dense breast tissue is very common and is not abnormal but dense breast tissue can make it harder to find cancer on a ma mmogram. Also, dense breast tissue may increase their breast cancer risk. This information about the result of the mammogram report was provided to the patient to raise their awareness. Use this report when you speak with the patient about their risks for breast cancer, which includes their family hist ory. At that time, you may recommend for more screening tests (Ultrasound or MRI) as they might be us eful based on their risk. A negative radiographic report should not delay biopsy if a dominant or clinically suspicious mass is present. Up to ten percent of cancers are not identified on mammography. A negative report may reinforce clinical impression. Adenosis and dense breasts may obscure an underlying neoplasm. False positive reports average 6 to 10%. Patient will receive a letter notifying them of these results.
== END 2023-01-08 00:55 ==
LOC: DI 00:35
PROVIDERS: PCP Family Medicine; Visit Provider Family Medicine
DX: Z12.31 Encounter for screening mammogram for malignant neoplasm of breast (principal)
CPT/HCPCS: 77063; 77067

== ENCOUNTER 2023-01-13 02:10 | Outpatient (CLI) | payer OTHER, SELFPAY ==
--- NOTE | 2023-01-13 | DI.US_ITS ---
Exam(s) MAMMO SCREEN CALL BACK UNI US BREAST LT COMPLETE EXAM: MAMMO SCREEN CALL BACK UNI-LEFT AND COMPLETE LEFT BREAST ULTRASOUND CLINICAL HISTORY: F/U ABNL MAMMO, NEW NODULE LT BREAST. TECHNIQUE: Unilateral spot mammographic images obtained with 3D tomosynthesisand utilizing computer aided detection (CAD). . Complete LEFT breast Ultrasound was also performed, including all 4 quadrants, the retroareolar regio n, and the ipsilateral axilla. COMPARISON: Prior mammograms were reviewed. This additional imaging was performed due to findings described on the recent screening mammogram of 01/08/2023. FINDINGS: DIAGNOSTIC MAMMOGRAM: Additional mammographic views performed todayrevealed this nodule to persist. COMPLETE LEFT BREAST ULTRASOUND: Ultrasound performed today reveals a solitary finding at the 9 o'clock position which corresponds to the finding on the mammogram and measures 5 x 3 mm. This has the appearance of a benign microcyst. No internal septae nor solid internal components. Scanning of the ipsilateral axilla reveals no significant adenopathy. IMPRESSION: 1. Benign findings. There is a solitary 5 millimeter benign microcyst corresponding to the finding on the mammogram. Appropriate follow-up is to keep this patient on a yearly mammogram schedule, with earlier imaging i f a self detected breast change is noted.. The patient was informed of these findings and recommendations by myself prior to leaving the [facility] ent today. BI-RADS Category 2 - Benign Findings Breast Density - Category B - Scattered areas of fibroglandular density Breast density Category C or D implies that the patient has dense breast tissue. Dense breast tissue can make it harder to find cancer on a mammogram. Dense breast tissue is also associated with an incr eased risk of breast cancer. This information about the result of the mammogram report was provided to the patient to raise their awareness. Use this report when you speak with the patient about their risks for breast cancer, which includes their family history. At that time, you may recommend additional screening tests (Ultrasoun d or MRI) as these tests may add significant information. A negative radiographic report should not delay biopsy if a dominant or clinically suspicious mass is present. Up to ten percent of cancers are not identified on mammography. A negative report may reinforce clinical impression. Adenosis and dense breasts may obscure an underlying neoplasm. False positive reports average 6 to 10%. Patient will receive a letter notifying them of these results.
== END 2023-01-13 02:30 ==
PROVIDERS: PCP Family Medicine; Visit Provider Family Medicine
DX: Z12.31 Encounter for screening mammogram for malignant neoplasm of breast (principal); R92.8 Other abnormal and inconclusive findings on diagnostic imaging of breast
CPT/HCPCS: 76642; 77063; 77067

== ENCOUNTER 2023-09-08 12:56 | Outpatient (CLI) | payer OTHER, SELFPAY ==
--- NOTE | 2023-09-08 12:45 | RT.EKG_ITS ---
APPROVED REPORT Exam: Resting ECG Reason for Exam: Palpatations Patient Location: O HR:84 bpm ECG Measurements Heart Rate 84 AXIS CO 151 P 49 QRSd 87 QRS 61 QT 380 T 8 QTc 450 Conclusion Sinus rhythm...normal P axis, V-rate 50- 99 Probable left atrial enlargement...P >50mS, <-0.10mV V1 I have reviewed and interpreted ECG and agree with software generated interpretation.
== END 2023-09-08 12:57 | disposition home or self-care (01) ==
PROVIDERS: PCP Family Medicine; Visit Provider Physician Assistant
DX: R07.89 Other chest pain (principal); R00.2 Palpitations
CPT/HCPCS: 93010

== ENCOUNTER 2023-09-08 14:14 | Outpatient (REF) | payer OTHER, SELFPAY ==
[2023-09-08 21:29] LABS: Anion Gap 6.3 mmol/L (3-11); BUN 14 mg/dL (7-18); CO2 28.7 mmol/L (21.0-32.0); CREATININE 0.8 mg/dL (0.55-1.02); Calcium 9.6 mg/dL (8.5-10.1); Chloride 100 mmol/L (98-107); Estimated GFR 81.21 (mL/min/1.73m2); Glucose 106 mg/dL (74-106); Potassium 4.2 mmol/L (3.5-5.1); Sodium 135 mmol/L (136-145); TSH (W/Ref FT4) 7.67 uIU/mL (0.36-3.74)
[2023-09-08 21:46] LABS: FREE T4 1.09 ng/dL (0.76-1.46)
== END 2023-09-08 14:15 | disposition home or self-care (01) ==
LOC: LBN 14:14
PROVIDERS: PCP Family Medicine; Visit Provider Physician Assistant
DX: R00.2 Palpitations (principal)
CPT/HCPCS: 80048; 84439; 84443

== ENCOUNTER 2024-02-25 02:50 | Outpatient (CLI) | payer MEDICARE, SELFPAY ==
[2024-02-25 09:53] LABS: Hemoglobin A1C 5.9 % (<5.7)
[2024-02-25 15:12] LABS: Calculated LDL 188 mg/dL (<100); Cholesterol 253 mg/dL (<200); HDL Cholesterol 44 mg/dL (40-60); Triglyceride 106 mg/dL (<150); Vitamin B12 1443 pg/mL (193-986)
== END 2024-02-25 02:51 | disposition home or self-care (01) ==
PROVIDERS: PCP Family Medicine; Visit Provider Family Medicine
DX: E78.5 Hyperlipidemia, unspecified (principal); E11.51 Type 2 diabetes mellitus with diabetic peripheral angiopathy without gangrene; I70.209 Unspecified atherosclerosis of native arteries of extremities, unspecified extremity; D64.9 Anemia, unspecified
CPT/HCPCS: 36415; 80061; 82607; 83036

== ENCOUNTER → 2024-03-01 00:24 | Outpatient (CLI) | payer MEDICARE, SELFPAY ==
--- NOTE | 2024-03-01 07:45 | DI.MAMMO_ITS ---
Exam(s) MAMMO SCREENING EXAM: MAMMO SCREENING CLINICAL HISTORY: screening,Z12.39 TECHNIQUE: Mammograms were interpreted according to the usual protocol including computer analysis w [employer] CAD system, tomosynthesis and C-view imaging. COMPARISON: 2014 through 2022 FINDINGS: The breasts are composed of scattered fibroglandular densities, Breast Density category B. No suspicious masses or suspicious microcalcifications are seen. Area of nodularity again noted in t he medial left breast. No skin thickening or abnormal axillary lymph nodes are seen. There has been no significant change from prior exams. IMPRESSION: BI-RADS Category 2 - Benign Findings Yearly screening mammography is recommended. Breast Density - Category B, scattered fibroglandular densities. A negative radiographic report should not delay biopsy if a dominant or clinically suspicious mass is present. Up to ten percent of cancers are not identified on mammography. A negative report may reinforce clinical impression. Adenosis and dense breasts may obscure an underlying neoplasm. False positive reports average 6 to 10%. Patient will receive a letter notifying them of these results.
== END ==
PROVIDERS: PCP Family Medicine; Visit Provider Family Medicine
DX: Z12.39 Encounter for other screening for malignant neoplasm of breast (principal); Z12.31 Encounter for screening mammogram for malignant neoplasm of breast
CPT/HCPCS: 77063; 77067

== ENCOUNTER 2024-05-29 15:27 | Outpatient (REF) | payer MEDICARE, SELFPAY | END 2024-05-29 15:28 | disposition home or self-care (01) | LOC: LBN 15:27 | PROVIDERS: PCP Family Medicine; Visit Provider Physician Assistant | DX: N39.0 Urinary tract infection, site not specified (principal); B96.29 Other Escherichia coli [E. coli] as the cause of diseases classified elsewhere | CPT/HCPCS: 87077; 87086; 87186 ==

== ENCOUNTER 2024-05-31 16:22 | Outpatient (REF) | payer MEDICARE, SELFPAY ==
[2024-05-31 21:27] LABS: Abs Immature Grans 0.04 10^3/uL (0.0-0.06); Absolute Basophil Count 0.05 10^3/uL (0.0-0.2); Absolute Eosinophil Count 0.22 10^3/uL (0.0-0.7); Absolute Lymphocyte Count 2.52 10^3/uL (1.2-3.4); Absolute Monocyte Count 0.65 10^3/uL (0.1-0.8); Absolute Neutrophil Count 4.67 10^3/uL (1.2-6.7); Basophils % 0.6 %; Eosinophils % 2.7 %; HCT 44.2 % (36.0-46.0); HGB 14.6 g/dL (11.2-15.7); Immature Grans % 0.5 %; Lymphocytes % 30.9 %; MCH 29.5 pg (27.0-33.0); MCV 89 fL (80-95); MPV 10.4 fL (8.0-11.0); Neutrophils % 57.3 %; Platelet Count 365 10^3/uL (130-400); RBC 4.95 10^6/uL (3.93-5.22); RDW 11.8 % (11.7-14.6); RDW-SD 38.2 fL; WBC 8.15 10^3/uL (4.4-10.8)
[2024-05-31 21:52] LABS: ALT 46 U/L (14-59); AST 24 U/L (15-37); Albumin 3.8 g/dL (3.4-5.0); Alkaline Phosphatase 121 U/L (46-116); Anion Gap 11.5 mmol/L (3-11); BUN 16 mg/dL (7-18); Bilirubin, Total 0.29 mg/dL (0.2-1.0); CO2 27.5 mmol/L (21.0-32.0); CREATININE 0.9 mg/dL (0.55-1.02); Calcium 9.3 mg/dL (8.5-10.1); Chloride 104 mmol/L (98-107); Estimated GFR 70.07 (mL/min/1.73m2); Glucose 131 mg/dL (74-106); Potassium 4.3 mmol/L (3.5-5.1); Sodium 143 mmol/L (136-145)
[2024-05-31 22:17] LABS: FREE T4 1.11 ng/dL (0.76-1.46)
[2024-06-01 11:18] LABS: Lab Add On Test DONE
[2024-06-01 11:46] LABS: Hemoglobin A1C 5.7 % (<5.7)
[2024-06-02 11:33] LABS: Lyme Ab w Rflx to Lyme Confirm Negative (Negative)
[2024-06-04 21:30] LABS: Anaplasma phagocytophilum Negative (Negative); B. miyamotoi PCR Negative (Negative); Babesia divergens/MO-1 Negative (Negative); Babesia duncani Negative (Negative); Babesia microti Negative (Negative); Ehrlichia chaffeensis Negative (Negative); Ehrlichia ewingii/canis Negative (Negative); Ehrlichia muris eauclairensis Negative (Negative)
== END 2024-05-31 16:23 | disposition home or self-care (01) ==
LOC: LBN 16:22
PROVIDERS: PCP Family Medicine; Visit Provider Physician Assistant
DX: R53.83 Other fatigue (principal); R73.9 Hyperglycemia, unspecified
CPT/HCPCS: 80053; 87798; 83036; 84439; 84443; 85025; 86618

== ENCOUNTER 2024-06-01 09:56 | Outpatient (CLI) | payer MEDICARE, SELFPAY ==
--- NOTE | 2024-06-01 10:51 | DI.RAD_ITS ---
Exam(s) XR CHEST 2V PA LATERAL EXAM: XR CHEST 2V PA LATERAL CLINICAL HISTORY: cough, fatigue, R53.83, r/o pneumonia. TECHNIQUE: 2D digital imaging was performed. COMPARISON: CR XR CHEST 2V PA LATERAL from 02/26/2022 FINDINGS: 2 views: Heart size is normal. The mediastinum is not widened. Lungs are clear. No infiltrates nor pleural effusions. IMPRESSION: No acute pulmonary findings. DATA REPOSITORY: RADIATION DOSE DELIVERED:
== END 2024-06-01 10:16 ==
LOC: DI 09:56
PROVIDERS: PCP Family Medicine; Visit Provider Physician Assistant
DX: R53.83 Other fatigue (principal); R05.9 Cough, unspecified
CPT/HCPCS: 71046

== ENCOUNTER 2024-08-03 02:08 | Outpatient (CLI) | payer MEDICARE, SELFPAY ==
--- NOTE | 2024-08-03 13:15 | DI.US_ITS ---
APPROVED REPORT Exam: Exercise Treadmill Patient Location: Out-Patient Room/Bed: Stress Nurse: Solange King RN Ordering Provider:NICK AGUIRRE MD, Contact Number: [phone] BMI: 28.08 Baseline Rhythm: Sinus Tachycardia Indications: Other chest pain Medical History Medical History: Severe PATRICK, anxiety, hypothyroidism, hyperglycemia, non cardiac chest pain , fatigue , HTN, palpitations, HTN, sleep disorder, GERD Cardiac Medications: Klonopin, levothyroxine, losartan, metoprolol succinate, omeprazole Allergies: Hydrochlorothiazide, lisinopril, bactrim Cardiac Risk Factors: Family hx, HTN, HLD, Previous Cardiac Procedures: None Pretest Chest Pain Characteristics: None Exercise History: Indeterminate Physical Disabilities: None Lung Sounds: Clear to auscultation Heart Sounds: Tachycardia Stress Test Details Test: Exercise stress testing was performed using a Gomez protocol. Rest Stress HR Resting HR Supine: 104 bpm Max Heart Rate (APMHR): 153 bpm Resting HR Standin bpm Target HR (85% APMHR): 130 bpm Max HR Achieved: 156 bpm % of APMHR: 102 Recovery HR: 109 bpm HR response to stress: Accelerated HR response to stress BP Resting BP Supine: 164/80 mmHg Resting BP Standin/82 mmHg Max BP: 192/90 mmHg Recovery BP: 152/78 mmHg BP response to stress: Normal blood pressure response to stress. ECG Resting ECG: Sinus Tachycardia Ectopy: None Stress ECG: Sinus Tachycardia ST Change: No significant ST segment changes noted Arrhythmia: None Recovery ECG: Sinus Tachycardia Recovery ST Change: No significant ST segment changes noted Recovery Arrhythmia: None Clinical Reason for Termination: Target HR Achieved Stress Symptoms: None Exercise duration: 03 min40 sec Highest Stage Reached: Stage 2: 2.5 mph at 12% grade. Exercise capacity: 5.43 METs Angina Score: None Rate Pressure Product: [id number] Stress ECG Conclusion 1. Resting electrocardiogram was normal 2. Patient exercised on the Gomez protocol and completed workload of 5.43 METS 3. Normal heart rate and blood pressure response to exercise. Patient achieved 100% of predicted hea rt rate for age 4. Resting echocardiogram showed normal LV function. Exercise echocardiogram showed augmented contra ctility of all segments with improvement in EF from 60% to greater than 70% 5. There were no significant dysrhythmias 6. Exercise capacity was fair. There was no electrocardiographic or echocardiographic evidence of my ocardial ischemia Stress Test Summary STAGE Time (mins) Speed (mph) Grade (%) HR BP SpO2 SYMPTOMS METS Supine 104 164/80 Standing 110 164/82 1 3 1.7 10 148 192/90 4.5 2 6 2.5 12 154 7 1 min recovery 112 164/72 3 min recovery 113 160/78 6 min recovery 109 152/78
== END 2024-08-03 02:28 ==
LOC: DI 02:08
PROVIDERS: PCP Family Medicine; Visit Provider Family Medicine
DX: I10 Essential (primary) hypertension (principal)
CPT/HCPCS: 93306; 93350; 93017

== ENCOUNTER 2024-08-22 17:33 | Emergency (ER) | payer MEDICARE, SELFPAY ==
[2024-08-22] VITALS (22 sets, daily range): BP systolic 159–190; BP diastolic 74–101; PULSE 73–92; RESP 12–23; TEMP 36.3; O2SAT 96–100
--- NOTE | 2024-08-22 17:30 | RT.EKG_ITS ---
APPROVED REPORT Exam: Resting ECG Reason for Exam: feels faint, weak Patient Location: E HR:83 bpm ECG Measurements Heart Rate 83 AXIS KS 165 P 43 QRSd 88 QRS 53 QT 383 T -6 QTc 450 Conclusion Sinus rhythm...normal P axis, V-rate 60- 99
--- NOTE | 2024-08-22 17:48 | W.ED.GENAD ---
Discharge Plan Disposition Patient Disposition: Home Condition: Stable Discharge Details Clinical Impression: Generalized weakness Primary Care Provider: Matthew Mcclendon ED Provider: Marivel Gonzalez Home Meds and New Rx's Prescriptions: Continued multivitamin Tablet 1 tab PO HS omeprazole 20 mg capsule,delayed release(DR/EC) 20 mg PO DAILY Qty: 90 4RF Patient Comments: takes in AM with levothyroxine. levothyroxine 75 mcg tablet 75 mcg PO DAILY Qty: 90 3RF losartan 100 mg tablet 100 mg PO HS Qty: 90 3RF metoprolol succinate 50 mg tablet extended release 24 hr 50 mg PO HS Patient Comments: take at night with losartan No Action clonazepam [Klonopin] 0.5 mg tablet 0.25 mg PO BID PRN (Reason: anxiety) Qty: 10 0RF Rx Instructions: Take 1/2 tab for a total dose of 0.25 mg BID prn. Discharge Instructions Instructions: Generalized Weakness (DC) Additional Instructions: At this time your workup is largely unremarkable, no evidence for infection, no evidence for electrolyte abnormality, heart attack or UTI. EKG is within normal limits. Increase oral fluids. Follow up with primary care provider in 3-5 days. Return to ED sooner if any worsening or concerns. Thank you for allowing us to care for you today. Referrals: Matthew Mcclendon MD [Primary Care Provider] - 5 days HPI General Mode of arrival: ambulatory. Date/Time Provider Initiated Documentation: 08/22/24 17:35. Limitations to Documentation: no limitations. Information obtained by: patient, RN notes reviewed and old records reviewed. HPI Narrative: 69-year-old female presents to the ER with a chief complaint of generalized weakness, not feeling well which got worse around 1030 this morning while at work. Patient reports she daily has episodes where she just does not feel right. She denies any headache, blurry or double vision, no recent head injuries, denies any chest pain or shortness of breath. Denies any nausea vomiting diarrhea. She states that her legs feel more weak, no focal neurodeficits noted, no nystagmus EOMs are intact. She reports that she is on metoprolol and losartan she is hypertensive upon arrival. She reports near syncopal episodes today. She does have a history of anxiety, palpitations hypertension obstructive sleep apnea, depression and hypothyroidism, GERD. Related Data Home Medications ?Medication ?Instructions ?Recorded ?Confirmed multivitamin 1 tab PO HS 10/27/22 08/22/24 omeprazole 20 mg capsule,delayed 20 mg PO DAILY #90 tab-caps 12/14/23 08/22/24 release clonazepam 0.5 mg tablet (Klonopin) 0.25 mg (1/2 x 0.5 mg) PO BID PRN 07/21/24 08/22/24 anxiety #10 tabs levothyroxine 75 mcg tablet 75 mcg PO DAILY #90 tabs 07/21/24 08/22/24 losartan 100 mg tablet 100 mg PO HS #90 tabs 07/21/24 08/22/24 metoprolol succinate 50 mg 50 mg PO HS 08/22/24 08/22/24 tablet,extended release 24 hr Previous Rx's ?Medication ?Instructions ?Recorded omeprazole 20 mg capsule,delayed 20 mg PO DAILY #90 tab-caps 12/14/23 release clonazepam 0.5 mg tablet (Klonopin) 0.25 mg (1/2 x 0.5 mg) PO BID PRN 07/21/24 anxiety #10 tabs levothyroxine 75 mcg tablet 75 mcg PO DAILY #90 tabs 07/21/24 losartan 100 mg tablet 100 mg PO HS #90 tabs 07/21/24 Allergies Allergy/AdvReac Type Severity Reaction Status Date / Time hydrochlorothiazide AdvReac Intermediate lip Verified 08/22/24 18:02 tingling lisinopril AdvReac Intermediate cough Verified 08/22/24 18:02 sulfamethoxazole (From AdvReac rash Verified 08/22/24 18:02 Bactrim) trimethoprim (From Bactrim) AdvReac rash Verified 08/22/24 18:02 General Stated Complaint: GenMedical [place]: 3 Review of Systems All systems reviewed & are unremarkable except as noted in HPI and below Constitutional Constitutional: Reports as per HPI, Reports malaise and Reports weakness Cardiovascular Cardiovascular: Denies chest pain, Denies chest pain at rest, Denies pedal edema, Reports lightheadedness and Denies dyspnea Respiratory Respiratory: Denies chest congestion, Denies cough and Denies dyspnea Gastrointestinal Gastrointestinal: Denies abdominal pain, Denies diarrhea, Denies nausea and Denies vomiting Genitourinary Genitourinary: Denies dysuria Neurologic Neurologic: Reports weakness Exam Narrative Exam Narrative: Constitutional: Alert and oriented x3. Appears stated age. Normal body habitus. Head: Normocephalic, no trauma. Eyes: Pupils PERRL, Red reflex noted, EOM's intact. Eyelids symmetrical without lesions, discharge, or swelling. ENT: Bilateral TM's WNL, External ear normal to inspection, no mastoid TTP, swelling, or erythema, Nasal turbinates WNL, no nasal discharge. Normal dentition, Posterior pharynx WNL, no exudate. Chest: RRR, Normal S1, S2, distal pulses intact. Patient is hypertensive upon arrival blood pressure 184/101, Resp: Lungs clear to auscultation bilaterally, no wheezes, rales, or rhonchi. Abdomen: Soft, non-distended, Normoactive bowel sounds all 4 quads. Musculoskeletal: Normal gait, Moves all 4 extremities without difficulty. Skin: No suspicious rashes or lesions. Capillary refill less than 2 sec. Neurologic: Cranial nerves II-XII intact. Alert and oriented x 3. Motor: No deficits noted. Sensory: Intact bilaterally all 4 extremities. No leg drop noted, no facial droop, community dietitian are equal bilaterally. Intact dorsiflexion and pedal flexion. Hematologic/Lymphatic: No ecchymosis, no lymphadenopathy. Course Vital Signs Vital signs: Vital Signs Temperature 36.3 C L 08/22/24 17:36 Pulse 84 08/22/24 17:36 Respiratory Rate 16 08/22/24 17:36 Blood Pressure 184/101 H 08/22/24 17:36 Pulse Oximetry 98 08/22/24 17:36 Temperature 36.3 C L 08/22/24 17:36 Temperature Source Tympanic 08/22/24 17:36 Pulse 84 08/22/24 17:36 Respiratory Rate 16 08/22/24 17:36 Blood Pressure 184/101 H 08/22/24 17:36 Blood Pressure Position Supine 08/22/24 17:36 Pulse Oximetry 98 08/22/24 17:36 Oxygen Delivery Method Room Air 08/22/24 17:36 Oxygen Flow Rate 0 08/22/24 17:36 Pain Level 0 08/22/24 17:36 Medical Decision Making 69-year-old female presents to the ER with a chief complaint of generalized weakness, not feeling well which got worse around 1030 this morning while at work. Patient reports she daily has episodes where she just does not feel right. She denies any headache, blurry or double vision, no recent head injuries, denies any chest pain or shortness of breath. Denies any nausea vomiting diarrhea. She states that her legs feel more weak, no focal neurodeficits noted, no nystagmus EOMs are intact. She reports that she is on metoprolol and losartan she is hypertensive upon arrival. She reports near syncopal episodes today. She does have a history of anxiety, palpitations hypertension obstructive sleep apnea, depression and hypothyroidism, GERD. Will Order basic labs and urinalysis. Labs are largely unremarkable. No urinary tract infection no signs of infection or electrolyte abnormality. No signs of CVA or neurodeficits imaging will be deferred at this time. No complaints of cough or fever or chest pain. Will discharge patient with home care will discuss strict return instructions and follow-up. Discussed lab results with patient who verbalized understanding. Patient discharged in hemodynamically stable condition. I did instruct patient to discuss her blood pressure with her PCP. Medical Records Medical records reviewed: Yes I reviewed the patient's medical records. Lab Data Lab results reviewed: Yes I reviewed the patient's lab results. Labs: Laboratory Tests Range/Units 08/22/24 08/22/24 17:55 18:56 WBC (4.4-10.8) 10^3/uL 7.59 RBC (3.93-5.22) 10^6/uL 4.73 Hgb (11.2-15.7) g/dL 13.9 Hct (36.0-46.0) % 42.0 MCV (80-95) fL 89 MCH (27.0-33.0) pg 29.4 MCHC (32.0-36.0) % 33.1 RDW (11.7-14.6) % 11.9 Plt Count (130-400) 10^3/uL 263 MPV (8.0-11.0) fL 10.2 Immature Gran % % 0.3 Neutrophils % % 49.7 Lymphocytes % % 36.9 Monocytes % % 8.6 Eosinophils % % 3.8 Basophils % % 0.7 Nucleated RBC % (0.0-0.3) % 0.0 Absolute Neutrophils (1.2-6.7) 10^3/uL 3.78 Absolute Lymphocytes (1.2-3.4) 10^3/uL 2.80 Absolute Monocytes (0.1-0.8) 10^3/uL 0.65 Absolute Eosinophils (0.0-0.7) 10^3/uL 0.29 Absolute Basophils (0.0-0.2) 10^3/uL 0.05 Sodium (136-145) mmol/L 141 Potassium (3.5-5.1) mmol/L 4.0 Chloride (98-107) mmol/L 103 Carbon Dioxide (21.0-32.0) mmol/L 31.5 Anion Gap (3-11) mmol/L 6.5 BUN (7-18) mg/dL 21 H Creatinine (0.55-1.02) mg/dL 0.9 Est GFR (CKD-EPI 2020) (mL/min/1.73m2) 70.07 Glucose (74-106) mg/dL 105 Calcium (8.5-10.1) mg/dL 9.1 Magnesium (1.8-2.4) mg/dL 2.0 Total Bilirubin (0.2-1.0) mg/dL 0.17 L AST (15-37) U/L 20 ALT (14-59) U/L 36 Alkaline Phosphatase (46-116) U/L 111 Troponin I (<or=51) ng/L < 4 Total Protein (6.4-8.2) g/dL 7.9 Albumin (3.4-5.0) g/dL 3.6 Urine Color (Yellow) Yellow Urine Clarity (Clear) Clear Urine pH (5-8) 6.0 Ur Specific [place] (1.005-1.025) 1.015 Urine Protein (Neg-Trace) mg/dL Negative Urine Ketones (Negative) mg/dL Negative Urine Blood (Negative) Trace-intact H Urine Nitrite (Negative) Negative Urine Bilirubin (Negative) Negative Urine Urobilinogen (Up to 0.2) mg/dL 0.2 Ur Leukocyte Esterase (Negative) Negative Urine RBC (0-2) HPF 0-2 Urine WBC (0-5) HPF 0-2 Ur Epithelial Cells (Negative) HPF Rare Urine Crystals (Negative) HPF Negative Urine Bacteria (Negative) HPF Negative Urine Mucus (Negative) Negative Ur Culture Indicated? No Urine Glucose (Negative) mg/dL Negative Quality:SDOH Health Related Social Needs: Health related social needs feeling lonely/isolated (Z60.8) PFSH All Active Problems (Updated 08/22/24 @ 19:17 by Marivel Gonzalez NP) Generalized weakness (Acute) Severe obstructive sleep apnea (Acute ~08/09/19) DR. SHIPMAN; on CPAP Anxiety (Chronic) Hypothyroidism (Chronic 10/19/13) call if symptoms worsen/persist doubt due to hormone imbalance, given recent testing Hyperglycemia (Acute) Elevated total protein (Acute) Non-cardiac chest pain (Acute) Displaced fracture of left great toe (Acute) Essential hypertension (Acute) Shoulder pain, left (Acute) Breast pain, left (Acute) I spoke with the radiologist; she reviewed the mammogram from last month compared with previous mammograms. The breast looks fine. She suggested without focal tenderness that an ultrasound would be low yield Fatigue (Acute) possibly due to poor sleep/PATRICK Mucous polyp of cervix (Acute 08/22/07) Adult acne (Acute 10/23/14) rowan-oral Allergic rhinitis (Acute) post nasal drip with dry cough Medical History Palpitations negative event monitor in 2020 Hypertension Sleep disorder Depressive disorder Gastroesophageal reflux disease (10/19/13) Family History Mother , 74 Essential hypertension Hyperlipidemia Neoplasm LUNG Lung cancer Father , 69 Essential hypertension Heart disease Glioblastoma Sister Depression Brother No problems noted. Brother Depression Maternal Grandfather No problems noted. Paternal Grandfather No problems noted. Maternal Grandmother , 76? Heart disease Paternal Grandmother Uterine cancer Son No problems noted. Son No problems noted. 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 Pets and animals: No Sexually active: No Do you think of yourself as: straight/heterosexual Current gender identity: female What is your relationship status?: How often do you talk on the phone with friends or family?: twice per week How often do you get together with friends or relatives?: once per week How often do you attend zoroastrianism or latter-day services?: 1-3 times per year Do you belong to any clubs or organized social groups?: no Panel score (0-1 are the most socially isolated patients): 2 What type of physical activity do you participate in: walking Duration: 15-30 minutes/day Frequency: 1-2 times per week Fide/Alevism: Sikhism Special fide needs: No Seatbelt use: always Helmet use: Yes Helmet use: always Drive intox or ride w/intox route driver: No Do you feel safe at home: Yes Do you feel safe in your relationship?: Yes
[2024-08-22 18:10] LABS: Abs Immature Grans 0.02 10^3/uL (0.0-0.06); Absolute Basophil Count 0.05 10^3/uL (0.0-0.2); Absolute Eosinophil Count 0.29 10^3/uL (0.0-0.7); Absolute Monocyte Count 0.65 10^3/uL (0.1-0.8); Absolute Neutrophil Count 3.78 10^3/uL (1.2-6.7); Basophils % 0.7 %; Eosinophils % 3.8 %; HGB 13.9 g/dL (11.2-15.7); Immature Grans % 0.3 %; Lymphocytes % 36.9 %; MCH 29.4 pg (27.0-33.0); MCHC 33.1 % (32.0-36.0); MCV 89 fL (80-95); MPV 10.2 fL (8.0-11.0); Monocytes % 8.6 %; Neutrophils % 49.7 %; Platelet Count 263 10^3/uL (130-400); RBC 4.73 10^6/uL (3.93-5.22); RDW 11.9 % (11.7-14.6); RDW-SD 39.2 fL; WBC 7.59 10^3/uL (4.4-10.8)
[2024-08-22 18:22] LABS: ALT 36 U/L (14-59); AST 20 U/L (15-37); Albumin 3.6 g/dL (3.4-5.0); Alkaline Phosphatase 111 U/L (46-116); Anion Gap 6.5 mmol/L (3-11); BUN 21 mg/dL (7-18); Bilirubin, Total 0.17 mg/dL (0.2-1.0); CO2 31.5 mmol/L (21.0-32.0); CREATININE 0.9 mg/dL (0.55-1.02); Calcium 9.1 mg/dL (8.5-10.1); Chloride 103 mmol/L (98-107); Estimated GFR 70.07 (mL/min/1.73m2); Glucose 105 mg/dL (74-106); Sodium 141 mmol/L (136-145); Total Protein 7.9 g/dL (6.4-8.2)
[2024-08-22 18:23] LABS: Troponin I < 4 ng/L (<or=51)
[2024-08-22 19:00] LABS: Bilirubin Negative (Negative); Blood Trace-intact (Negative); Clarity Clear (Clear); Glucose Negative (Negative); Ketones Negative (Negative); Leukocyte Esterase Negative (Negative); Nitrite Negative (Negative); Specific Gravity 1.015 (1.005-1.025); Urobilinogen 0.2 mg/dL (Up to 0.2)
[2024-08-22 19:06] LABS: Bacteria Negative HPF (Negative); C & S Indicated? No; Crystals Negative HPF (Negative); Epithelial Cells Rare HPF (Negative); Mucus Negative (Negative); RBC 0-2 HPF (0-2); WBC 0-2 HPF (0-5)
[2024-08-22 19:57] LABS: Troponin I 4 ng/L (<or=51)
== END 2024-08-22 19:32 | disposition home or self-care (01) ==
PROVIDERS: Emergency Provider Registered Nurse Emergency; PCP Family Medicine
DX: R53.1 Weakness (principal); I10 Essential (primary) hypertension
CPT/HCPCS: 36415; 80053; 93005; 99284; 81003; 81015; 83735; 84484; 85025; 93010; 99283

== ENCOUNTER 2024-09-17 20:26 | Emergency (ER) | payer MEDICARE, SELFPAY ==
--- NOTE | 2024-09-17 20:24 | W.ED.GENAD ---
Discharge Plan Disposition Patient Disposition: Home Condition: Good Discharge Details Clinical Impression: Panic attack Primary Care Provider: Matthew Mcclendon ED Provider: Leann Vega Home Meds and New Rx's Prescriptions: Continued multivitamin Tablet 1 tab PO HS omeprazole 20 mg capsule,delayed release(DR/EC) 20 mg PO DAILY Qty: 90 4RF Patient Comments: takes in AM with levothyroxine. levothyroxine 75 mcg tablet 75 mcg PO DAILY Qty: 90 3RF losartan 100 mg tablet 100 mg PO HS Qty: 90 3RF clonazepam [Klonopin] 0.5 mg tablet 0.25 mg PO BID PRN (Reason: anxiety) Qty: 10 0RF Rx Instructions: Take 1/2 tab for a total dose of 0.25 mg BID prn. metoprolol succinate 50 mg tablet extended release 24 hr 50 mg PO HS Patient Comments: take at night with losartan Discharge Instructions Additional Instructions: Please follow-up with your primary care provider as scheduled to discuss your anxiety/panic attacks. Your workup today was very reassuring. There was no abnormality on EKG or blood work/urine. I recommend that you use mindfulness techniques. An mukul such as [employer] timer can be helpful; they have many different free options that can help with meditation or other mindfulness techniques. Return to emergency care if you develop new chest pains, episodes of passing out, difficulty breathing, suicidality, thoughts of hurting yourself or others, or if you are very worried and need to be rechecked again immediately. Referrals: Matthew Mcclendon MD [Primary Care Provider] - [facility] General Date/Time Provider Initiated Documentation: 09/17/24 22:14. [facility] Narrative: Carina is a 69 year old female who presents to the emergency department today for evaluation of panic attack. She reports that she was sitting on the couch playing on her Matthew and all of a sudden she felt like she was hallucinating, saw someone, and the door with the intention of hurting her family. This was accompanied by palpitations. She recognized this as a panic attack and got up to take her Klonopin, felt dizzy when she got up, which she attributes to standing up quickly. She reports that she has a history of panic attacks, but this was not felt more severe than usual. She feels like her Klonopin has worked, but has not been as effective as usual. She denies recent fever/chills, unusual headaches, congestion, sore throat, cough, chest pain, shortness of breath, nausea/vomiting, change in p.o. intake, change in bowel or bladder function, abdominal pain. She thinks today's panic attack may be related to her thinking about her upcoming doctor's appointment, she is anxious to find out why she has not been feeling well the last couple of years.Denies self-harm, suicidal ideation, or history of psychiatric admissions. Past medical history is significant for hypothyroidism, HTN, anxiety and dizziness. She denies EtOH use, tobacco use, marijuana use, recreational drug use. Physical exam remarkable for tearful patient. Carina is alert and oriented. Easy work of breathing, lung sounds clear bilaterally. Normal heart sounds. Abdomen is soft, nondistended, nontender palpation. Normal gait. D/dx includes but is not limited to: Panic attack, hyperthyroidism, imbalance, anemia, UTI, drug use, medication reaction I independently interpreted the following tests: CBC, BMP, UA, UDS all reassuring. EKG reassuring, NSR rate 92. No changes c/w acute ischemia. T wave inversions in V2-V4 noted on previous EKGs (though not on 08/22/24). Normal intervals. While in the emergency department, Carina received 0.5 mg lorazepam. She reports that this provided good relief of anxiety symptoms. Overall workup today very reassuring. Unclear etiology of increased panic attacks. Recommend close follow-up with PCP and specialist referral as needed. Reviewed discharge instructions with patient, including symptomatic management, stress reduction/anxiety management, and red flags indicating need for return to emergency care Related Data Home Medications ?Medication ?Instructions ?Recorded ?Confirmed multivitamin 1 tab PO HS 10/27/22 09/17/24 omeprazole 20 mg capsule,delayed 20 mg PO DAILY #90 tab-caps 12/14/23 09/17/24 release levothyroxine 75 mcg tablet 75 mcg PO DAILY #90 tabs 07/21/24 09/17/24 losartan 100 mg tablet 100 mg PO HS #90 tabs 07/21/24 09/17/24 metoprolol succinate 50 mg 50 mg PO HS 08/22/24 09/17/24 tablet,extended release 24 hr clonazepam 0.5 mg tablet (Klonopin) 0.25 mg (1/2 x 0.5 mg) PO BID PRN 08/29/24 09/17/24 anxiety #10 tabs Previous Rx's ?Medication ?Instructions ?Recorded omeprazole 20 mg capsule,delayed 20 mg PO DAILY #90 tab-caps 12/14/23 release levothyroxine 75 mcg tablet 75 mcg PO DAILY #90 tabs 07/21/24 losartan 100 mg tablet 100 mg PO HS #90 tabs 07/21/24 clonazepam 0.5 mg tablet (Klonopin) 0.25 mg (1/2 x 0.5 mg) PO BID PRN 08/29/24 anxiety #10 tabs Allergies Allergy/AdvReac Type Severity Reaction Status Date / Time hydrochlorothiazide AdvReac Intermediate lip Verified 09/17/24 20:31 tingling lisinopril AdvReac Intermediate cough Verified 09/17/24 20:31 sulfamethoxazole (From AdvReac rash Verified 09/17/24 20:31 Bactrim) trimethoprim (From Bactrim) AdvReac rash Verified 09/17/24 20:31 General [place]: 3 Review of Systems Narrative: see HPI Exam Const General: cooperative, comfortable and anxious Nutritional Appearance: average body habitus Orientation: alert and oriented x3 Resp Effort & Inspection: normal respiratory effort and able to speak in complete sentences Auscultation: clear to auscultation bilaterally Cardio Rate: regular rate Rhythm: regular rhythm Neuro General: patient alert, patient oriented x3, gait normal, tone normal and moves all extremities Cognition: normal cognition Speech: speech normal Gait: normal gait Motor: muscle tone normal throughout Psych Appearance: grossly normal Mental Status: mental status grossly normal Speech and Movement: speech and movement normal Mood: anxious mood Affect: anxious affect Attitude: cooperative Medical Decision Making Quality:SDOH Health Related Social Needs: Health related social needs feeling lonely/isolated (Z60.8) PFSH All Active Problems (Updated 09/17/24 @ 22:15 by Leann Junior) Panic attack (Acute) Generalized weakness (Acute) Severe obstructive sleep apnea (Acute ~08/09/19) DR. SHIPMAN; on CPAP Anxiety (Chronic) Hypothyroidism (Chronic 10/19/13) call if symptoms worsen/persist doubt due to hormone imbalance, given recent testing Hyperglycemia (Acute) Elevated total protein (Acute) Non-cardiac chest pain (Acute) Displaced fracture of left great toe (Acute) Essential hypertension (Acute) Shoulder pain, left (Acute) Breast pain, left (Acute) I spoke with the radiologist; she reviewed the mammogram from last month compared with previous mammograms. The breast looks fine. She suggested without focal tenderness that an ultrasound would be low yield Fatigue (Acute) possibly due to poor sleep/PATRICK Mucous polyp of cervix (Acute 08/22/07) Adult acne (Acute 10/23/14) rowan-oral Allergic rhinitis (Acute) post nasal drip with dry cough Medical History Palpitations negative event monitor in 2020 Hypertension Sleep disorder Depressive disorder Gastroesophageal reflux disease (10/19/13) Family History Mother , 74 Essential hypertension Hyperlipidemia Neoplasm LUNG Lung cancer Father , 69 Essential hypertension Heart disease Glioblastoma Sister Depression Brother No problems noted. Brother Depression Maternal Grandfather No problems noted. Paternal Grandfather No problems noted. Maternal Grandmother , 76? Heart disease Paternal Grandmother Uterine cancer Son No problems noted. Son No problems noted. 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 Pets and animals: No Sexually active: No Do you think of yourself as: straight/heterosexual Current gender identity: female What is your relationship status?: How often do you talk on the phone with friends or family?: twice per week How often do you get together with friends or relatives?: once per week How often do you attend jew or oriental orthodox services?: 1-3 times per year Do you belong to any clubs or organized social groups?: no Panel score (0-1 are the most socially isolated patients): 2 What type of physical activity do you participate in: walking Duration: 15-30 minutes/day Frequency: 1-2 times per week Fide/Tenriism: Presybeterian Special fide needs: No Seatbelt use: always Helmet use: Yes Helmet use: always Drive intox or ride w/intox medical driver: No Do you feel safe at home: Yes Do you feel safe in your relationship?: Yes
[2024-09-17 20:26] VITALS: BP 177/82; PULSE 100; RESP 20; TEMP 36.4; O2SAT 98
[2024-09-17 20:34] VITALS: RESP 20
--- NOTE | 2024-09-17 20:45 | RT.EKG_ITS ---
APPROVED REPORT Exam: Resting ECG Reason for Exam: palpitations, panic attack Patient Location: E HR:92 bpm ECG Measurements Heart Rate 92 AXIS NM 182 P 55 QRSd 92 QRS 69 QT 358 T 22 QTc 443 Conclusion Sinus rhythm. [address] no specific [address] changes no stemi
[2024-09-17] MEDS: LORazepam 0.5 MG TAB PO (21:33)
[2024-09-17 21:35] LABS: Abs Immature Grans 0.02 10^3/uL (0.0-0.06); Absolute Basophil Count 0.05 10^3/uL (0.0-0.2); Absolute Lymphocyte Count 1.67 10^3/uL (1.2-3.4); Absolute Monocyte Count 0.63 10^3/uL (0.1-0.8); Absolute Neutrophil Count 4.67 10^3/uL (1.2-6.7); Basophils % 0.7 %; Eosinophils % 2.8 %; HCT 44.1 % (36.0-46.0); HGB 14.2 g/dL (11.2-15.7); Immature Grans % 0.3 %; Lymphocytes % 23.1 %; MCH 29.3 pg (27.0-33.0); MCHC 32.2 % (32.0-36.0); MCV 91 fL (80-95); MPV 10.3 fL (8.0-11.0); Monocytes % 8.7 %; Neutrophils % 64.4 %; Platelet Count 281 10^3/uL (130-400); RBC 4.85 10^6/uL (3.93-5.22); RDW 11.9 % (11.7-14.6); RDW-SD 39.8 fL; WBC 7.24 10^3/uL (4.4-10.8)
[2024-09-17 21:42] LABS: Bilirubin Negative (Negative); Blood Negative (Negative); Clarity Clear (Clear); Glucose Negative (Negative); Ketones Negative (Negative); Leukocyte Esterase Negative (Negative); Nitrite Negative (Negative); Urobilinogen 0.2 mg/dL (Up to 0.2)
[2024-09-17 21:58] LABS: *AMPHETAMINES SCREEN URINE Negative (Negative); *BARBITURATES SCREEN URINE Negative (Negative); *BENZODIAZEPINES SCREEN URINE Negative (Negative); Cannabinoids THC Negative (Negative); Cocaine Screen,Urine Negative (Negative); METHADONE URINE SCREEN Negative (Negative); OPIATES URINE SCREEN Negative (Negative)
[2024-09-17 21:59] LABS: Tricyclic Antidepressants Negative (Negative)
[2024-09-17 21:59] LABS: Anion Gap 3.6 mmol/L (3-11); BUN 19 mg/dL (7-18); CO2 33.4 mmol/L (21.0-32.0); CREATININE 0.9 mg/dL (0.55-1.02); Calcium 9.2 mg/dL (8.5-10.1); Chloride 105 mmol/L (98-107); Estimated GFR 70.07 (mL/min/1.73m2); Glucose 108 mg/dL (74-106); Potassium 3.8 mmol/L (3.5-5.1); Sodium 142 mmol/L (136-145); TSH (W/Ref FT4) 2.46 uIU/mL (0.36-3.74)
[2024-09-17 22:31] VITALS: BP 158/71; PULSE 84; TEMP 36.8; O2SAT 93
[2024-09-17 22:32] VITALS: BP 158/71; PULSE 84; RESP 16; TEMP 36.8; O2SAT 93
== END 2024-09-17 22:34 | disposition home or self-care (01) ==
PROVIDERS: Emergency Provider Nurse Practitioner Family; PCP Family Medicine
DX: F41.0 Panic disorder [episodic paroxysmal anxiety] (principal); Z60.8 Other problems related to social environment; R42 Dizziness and giddiness; F41.9 Anxiety disorder, unspecified; R44.3 Hallucinations, unspecified
CPT/HCPCS: 36415; 80048; 80307; 93005; 99283; 81003; 84443; 85025; 93010

== ENCOUNTER 2024-11-19 10:58 | Emergency (ER) | payer MEDICARE, SELFPAY ==
[2024-11-19] VITALS (10 sets, daily range): BP systolic 136–160; BP diastolic 73–86; PULSE 76–89; RESP 13–23; TEMP 36.7–36.8; O2SAT 94–98
--- NOTE | 2024-11-19 10:45 | RT.EKG_ITS ---
APPROVED REPORT Exam: Resting ECG Reason for Exam: palpitations Patient Location: E HR:93 bpm ECG Measurements Heart Rate 93 AXIS [place] 142 P 55 QRSd 93 QRS 67 QT 367 T -12 QTc 457 Conclusion Sinus rhythm. 93 normal axis no stemi
--- NOTE | 2024-11-19 11:11 | ED.GENADUL_ITS ---
Discharge Plan Disposition Patient Disposition: Home Condition: Stable Discharge Details Clinical Impression: Panic disorder Primary Care Provider: Matthew Mcclendon ED Provider: Roldan Ferguson Home Meds and New Rx's Prescriptions: Continued multivitamin Tablet 1 tab PO HS omeprazole 20 mg capsule,delayed release(DR/EC) 20 mg PO DAILY Qty: 90 4RF Patient Comments: takes in AM with levothyroxine. levothyroxine 75 mcg tablet 75 mcg PO DAILY Qty: 90 3RF losartan 100 mg tablet 100 mg PO HS Qty: 90 3RF chlorthalidone 25 mg tablet 12.5 mg PO DAILY Qty: 30 1RF clonazepam [Klonopin] 0.5 mg tablet 0.25 mg PO BID PRN (Reason: anxiety) Qty: 10 0RF Rx Instructions: Take 1/2 tab for a total dose of 0.25 mg BID prn. Discharge Instructions Instructions: Panic Attack ED Additional Instructions: You were seen in the emergency department for your dizziness for 3 days with panic attacks this morning with some shortness of breath further feelings of near syncope, your cardiac workup is negative, electrolytes are normal there is no signs of infection, your CT of your head is negative and your chest x-ray shows no acute abnormality. You likely are having some significant anxiety and panic, you have medications at home. Please return for any acute emergent concerns otherwise please take your at home clonazepam as needed for anxiety and panic. Referrals: Matthew Mcclendon MD [Primary Care Provider] - Discharge Data Discharge Date/Time-TO BE ENTERED AT DEPARTURE: 11/19/24 13:24 HPI General Date/Time Provider Initiated Documentation: 11/19/24 11:11 . HPI Narrative: 69 year-old female presents to ED today by POV/ambulating with a chief complaint of panic attacks today, but dizziness onset prior for the past 3 days. Quality described as chest tightness, dizziness, anxiety & panic, no radiation to crushing chest pain, endorses palpitations, denies shortness of breath, fever, cough, nausea/vomiting, syncope. Severity is described as moderate to severe compared to her baseline panic attacks. Palliating factors include took 1 dose at-home clonazepam with mild relief. Provoking factors include nothing specific. Events leading up to the incident/Associated Symptoms: Patient denies cardiac history. Patient not anticoagulated. Related Data Home Medications ?Medication ?Instructions ?Recorded ?Confirmed multivitamin 1 tab PO HS 10/27/22 11/19/24 levothyroxine 75 mcg tablet 75 mcg PO DAILY #90 tabs 07/21/24 11/19/24 losartan 100 mg tablet 100 mg PO HS #90 tabs 07/21/24 11/19/24 omeprazole 20 mg capsule,delayed 20 mg PO DAILY #90 tab-caps 09/21/24 11/19/24 release chlorthalidone 25 mg tablet 12.5 mg (1/2 x 25 mg) PO DAILY #30 10/24/24 11/19/24 tabs clonazepam 0.5 mg tablet (Klonopin) 0.25 mg (1/2 x 0.5 mg) PO BID PRN 11/07/24 11/19/24 anxiety #10 tabs Previous Rx's ?Medication ?Instructions ?Recorded levothyroxine 75 mcg tablet 75 mcg PO DAILY #90 tabs 07/21/24 losartan 100 mg tablet 100 mg PO HS #90 tabs 07/21/24 omeprazole 20 mg capsule,delayed 20 mg PO DAILY #90 tab-caps 09/21/24 release chlorthalidone 25 mg tablet 12.5 mg (1/2 x 25 mg) PO DAILY #30 10/24/24 tabs clonazepam 0.5 mg tablet (Klonopin) 0.25 mg (1/2 x 0.5 mg) PO BID PRN 11/07/24 anxiety #10 tabs Allergies Allergy/AdvReac Type Severity Reaction Status Date / Time hydrochlorothiazide AdvReac Intermediate lip Verified 11/19/24 11:09 tingling lisinopril AdvReac Intermediate cough Verified 11/19/24 11:09 amlodipine AdvReac Mild edema Verified 11/19/24 11:09 sulfamethoxazole (From AdvReac rash Verified 11/19/24 11:09 Bactrim) trimethoprim (From Bactrim) AdvReac rash Verified 11/19/24 11:09 General Stated Complaint: Anxiety [place]: 3 Review of Systems All systems reviewed & are unremarkable except as noted in HPI and below Exam Narrative Exam Narrative: GENERAL APPEARANCE: Well-nourished, non-toxic, awake and alert, atraumatic, no acute distress. SKIN: Warm, pink, dry, intact, without rashes/lesions/ulcerations. HEAD: Normocephalic, atraumatic, normal hair distribution for gender/age. EYES: Normal conjunctiva, no exudates on lids/lashes. ENT: Nares patent, no circumoral cyanosis, no facial swelling NECK: Supple, trachea midline, painless cervical ROM. LUNGS/CHEST: Lungs CTA bilaterally, non-labored respirations, normal A/P diameter, symmetrical expansion, no chest wall deformity HEART (CV/PV): Regular rate and rhythm without murmur, no peripheral edema, no JVD. ABDOMEN: Soft, non-distended, no guarding. MSK: Normal ROM, no swelling/deformity to bilateral UEs or LEs, moving all extremities without weakness, no cyanosis, spine midline without tenderness, normal curvature. NEURO: Mental Status AAOx4 - alert to person, place, time, events No facial droop, no forehead involvement. Motor: No focal weakness - strength 5/5 in bilateral UEs and LEs, proximal and distal, symmetric. Sensory: sensation intact to light touch globally. Gait normal: patient ambulated without ataxia into ED room. PSYCH: dysthymic, cooperative, pleasant, appropriate speech Course Vital Signs Vital signs: Vital Signs Temperature 36.7 C 11/19/24 11:01 Pulse 89 11/19/24 11:01 Respiratory Rate 20 11/19/24 11:01 Blood Pressure 160/86 H 11/19/24 11:01 Pulse Oximetry 98 11/19/24 11:01 Temperature 36.7 C 11/19/24 11:01 Pulse 89 11/19/24 11:01 Respiratory Rate 20 11/19/24 11:01 Blood Pressure 160/86 H 11/19/24 11:01 Blood Pressure Position Sitting 11/19/24 11:01 Pulse Oximetry 98 11/19/24 11:01 Oxygen Delivery Method Room Air 11/19/24 11:01 Oxygen Flow Rate 0 11/19/24 11:01 Medical Decision Making This dictation utilizes [id number] dictation software and may contain unedited grammatical errors. 69 year-old female presents to ED today by POV/ambulating with a chief complaint of panic attacks today, but dizziness onset prior for the past 3 days. Quality described as chest tightness, dizziness, anxiety & panic, no radiation to crushing chest pain, endorses palpitations, denies shortness of breath, fever, cough, nausea/vomiting, syncope. Severity is described as moderate to severe compared to her baseline panic attacks. Palliating factors include took 1 dose at-home clonazepam with mild relief. Provoking factors include nothing specific. Events leading up to the incident/Associated Symptoms: Patient denies cardiac history. Patients' medical history: PATRICK, panic disorder, anxiety, noncardiac chest pain, hypertension. Family and social history: Lives at home with , denies IVDU or EtOH. Pertinent exam findings / vital signs include benign cardiopulmonary exam, tearful disposition, benign abdomen, neuro intact. Differential / pathologies of concern include ACS, intracranial malignancy or other intracranial pathology, BPPV, electrolyte abnormality, arrhythmia. Diagnostic studies of: -CBC, CMP, magnesium, serial troponins, lipase, TSH, CT head without contrast, XR chest, EKG. -CBC benign -CMP shows no actionable abnormality -Magnesium within normal limits -Serial troponins negative with reliable onset -Lipase negative -TSH within normal limits -CT head shows no acute intracranial pathology -XR chest shows no widened mediastinum or other acute pathology, no abnormalities of the lungs -EKG shows normal sinus rhythm with no ST changes, normal intervals, normal axi s, good R wave progression, no T wave abnormalities Interventions of: -0.5 mg Ativan IVP. ED Course/Assessment/Plan: 69-year-old female with history of noncardiac chest pain and panic disorder pre sents with worse than usual panic attacks today and 3 days of dizziness preceding, cardiac workup is negative, patient has no malignancy on head CT, has no positional vertigo, I counseled her that that all her symptoms were likely related to panic, provided IVP Ativan, recommend follow-up with her primary care provider with possible outpatient referral to cardiology at some point the future with strict return criteria for any acute emergent concerns especially chest pain with shortness of breath and near syncope. Findings not consistent with ACS, malignancy, thyroid pathology, arrhythmia, el ectrolyte abnormality, infection. Disposition of panic disorder. Patient verbalized understanding of the plan and return to ED criteria and engaged in shared decision making. Medical Records Medical records reviewed: Yes I reviewed the patient's medical records. Imaging Data Radiologic Study: Attestation: I personally reviewed and interpreted this imaging study as follows: Imaging: CT Scan Radiologist's impression: Exam: CT Head Without Contrast Exam date and time: 11/19/2024 12:09 PM Age: 69 years old Clinical indication: Other: Dizziness x3 days TECHNIQUE: Imaging protocol: Computed tomography of the head without contrast. Radiation optimization: All CT scans at this facility use at least one of these dose optimization techniques: automated exposure control; mA and/or kV adjustment per patient size (includes targeted exams where dose is matched to clinical indication); or iterative reconstruction. COMPARISON: CT HEAD WO 09/17/2022 7:24 PM FINDINGS: Brain: Normal. No hemorrhage. Unremarkable white matter. No mass effect. Cerebral ventricles: No ventriculomegaly. Paranasal sinuses: Visualized sinuses are unremarkable. No fluid levels. Mastoid air cells: Visualized mastoid air cells are well aerated. Bones: Unremarkable. No acute fracture. Soft tissues: Unremarkable. IMPRESSION: No large territorial infarct or intracranial bleed. Dictated and Authenticated by: Ayo Max MD. Radiologic Study #2: Attestation: I personally reviewed and interpreted this imaging study as follows: Imaging: X-Ray Radiologist's impression: Exam: XR Chest Exam date and time: 11/19/2024 12:18 PM Age: 69 years old Clinical indication: Other: Dizziness TECHNIQUE: Imaging protocol: Radiologic exam of the chest. Views: 2 views. COMPARISON: CR XR CHEST 2V PA LATERAL 06/01/2024 10:43 AM FINDINGS: Lungs: Bilateral apical fibrotic changes. There is no evidence of focal pulmonary consolidation. Pleural spaces: Unremarkable. No pleural effusion. No pneumothorax. Heart/Mediastinum: Unremarkable. No cardiomegaly. Bones/joints: Mild degenerative disease of bilateral acromioclavicular joints. IMPRESSION: No acute cardiopulmonary process. Dictated and Authenticated by: Ayo Max MD. Lab Data Lab results reviewed: Yes I reviewed the patient's lab results. Labs: Laboratory Tests Range/Units 11/19/24 11/19/24 11/19/24 11:28 11:36 12:35 WBC (4.4-10.8) 10^3/uL 5.59 RBC (3.93-5.22) 10^6/uL 4.74 Hgb (11.2-15.7) g/dL 14.0 Hct (36.0-46.0) % 42.6 MCV (80-95) fL 90 MCH (27.0-33.0) pg 29.5 MCHC (32.0-36.0) % 32.9 RDW (11.7-14.6) % 11.9 Plt Count (130-400) 10^3/uL 267 MPV (8.0-11.0) fL 10.2 Immature Gran % % 0.4 Neutrophils % % 65.5 Lymphocytes % % 23.6 Monocytes % % 6.6 Eosinophils % % 3.4 Basophils % % 0.5 Nucleated RBC % (0.0-0.3) % 0.0 Absolute Neutrophils (1.2-6.7) 10^3/uL 3.66 Absolute Lymphocytes (1.2-3.4) 10^3/uL 1.32 Absolute Monocytes (0.1-0.8) 10^3/uL 0.37 Absolute Eosinophils (0.0-0.7) 10^3/uL 0.19 Absolute Basophils (0.0-0.2) 10^3/uL 0.03 Sodium (136-145) mmol/L 142 Potassium (3.5-5.1) mmol/L 4.0 Chloride (98-107) mmol/L 103 Carbon Dioxide (21.0-32.0) mmol/L 30.7 Anion Gap (3-11) mmol/L 8.3 BUN (7-18) mg/dL 18 Creatinine (0.55-1.02) mg/dL 0.9 Est GFR (CKD-EPI 2020) (mL/min/1.73m2) 70.07 Glucose (74-106) mg/dL 167 H Calcium (8.5-10.1) mg/dL 9.2 Magnesium (1.8-2.4) mg/dL 2.0 Total Bilirubin (0.2-1.0) mg/dL 0.3 AST (15-37) U/L 21 ALT (14-59) U/L 56 Alkaline Phosphatase (46-116) U/L 114 Troponin I (<or=51) ng/L 6 6 Total Protein (6.4-8.2) g/dL 7.8 Albumin (3.4-5.0) g/dL 3.6 Lipase (<78) U/L 51 TSH Cancelled 1.53 Quality:SDOH Health Related Social Needs: Health related social needs feeling lonely/isolated (Z 60.8) PFSH All Active Problems (Updated 11/19/24 @ 13:07 by JARRET Wagoner) Panic disorder (Acute) Severe obstructive sleep apnea (Acute ~08/09/19) DR. SHIPMAN; on CPAP Anxiety (Chronic) Hypothyroidism (Chronic 10/19/13) call if symptoms worsen/persist doubt due to hormone imbalance, given recent testing Hyperglycemia (Acute) Elevated total protein (Acute) Non-cardiac chest pain (Acute) Displaced fracture of left great toe (Acute) Essential hypertension (Acute) Shoulder pain, left (Acute) Breast pain, left (Acute) I spoke with the radiologist; she reviewed the mammogram from last month compared with previous mammograms. The breast looks fine. She suggested without focal tenderness that an ultrasound would be low yield Fatigue (Acute) possibly due to poor sleep/PATRICK Mucous polyp of cervix (Acute 08/22/07) Adult acne (Acute 10/23/14) rowan-oral Allergic rhinitis (Acute) post nasal drip with dry cough Medical History Palpitations negative event monitor in 2020 Hypertension Sleep disorder Depressive disorder Gastroesophageal reflux disease (10/19/13) Family History Mother , 74 Essential hypertension Hyperlipidemia Neoplasm LUNG Lung cancer Father , 69 Essential hypertension Heart disease Glioblastoma Sister Depression Brother No problems noted. Brother Depression Maternal Grandfather No problems noted. Paternal Grandfather No problems noted. Maternal Grandmother , 76? Heart disease Paternal Grandmother Uterine cancer Son No problems noted. Son No problems noted. 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 Pets and animals: No Sexually active: No Do you think of yourself as: straight/heterosexual Current gender identity: female What is your relationship status?: How often do you talk on the phone with friends or family?: twice per week How often do you get together with friends or relatives?: once per week How often do you attend evangelical or pentecostalism services?: 1-3 times per year Do you belong to any clubs or organized social groups?: no Panel score (0-1 are the most socially isolated patients): 2 What type of physical activity do you participate in: walking Duration: 15-30 minutes/day Frequency: 1-2 times per week Fide/Restoration: Hoahaoism Special fide needs: No Seatbelt use: always Helmet use: Yes Helmet use: always Drive intox or ride w/intox entry driver operator: No Do you feel safe at home: Yes Do you feel safe in your relationship?: Yes
--- NOTE | 2024-11-19 11:15 | DI.RAD_ITS ---
Exam(s) XR CHEST 2V PA LATERAL EXAM: XR CHEST 2V PA LATERAL CLINICAL HISTORY: dizziness. TECHNIQUE: 2D digital imaging was performed. COMPARISON: Chest x-ray 06/01/2024 FINDINGS: 2 views: Heart size is normal. The mediastinum is not widened. Lungs are clear. No infiltrates nor pleural effusions. IMPRESSION: No acute pulmonary findings. DATA REPOSITORY: RADIATION DOSE DELIVERED:
--- NOTE | 2024-11-19 11:15 | DI.CT_ITS ---
Exam(s) CT HEAD WO EXAM: CT HEAD WO CLINICAL HISTORY: dizziness x3 days. TECHNIQUE: Imaging Protocol: Axial computed tomography images with coronal and sagittal reformatted images were created and reviewed COMPARISON: CT CT HEAD WO from 09/17/2022 FINDINGS: There are no skull fractures. There is no fluid in the visualized paranasal sinuses. Mastoid air mirna ls are clear. There is no fluid in the middle ear cavities. There is no evidence of intracranial hemorrhage, mass effect, or shift of midline structures. There are no extra-axial fluid collections. The ventricles are not enlarged or shifted and there is no blo od within the ventricular system nor within the basal cisterns. IMPRESSION: No acute intracranial findings on this noninfused CT scan of the brain. RADIATION DOSE DELIVERED: 836.84mGy.cm Total DLP DATA REPOSITORY: All CT scans at this facility are submitted to the National Radiology Data Registry (NRDR) Dose Index Registry (DIR) with the [employer] (ACR). RADIATION OPTIMIZATION: All CT scans at this facility use at least one of these dose optimization te chniques: automated exposure control; mA and/or kV adjustment per patient size (includes targeted exa ms where dose is matched to clinical indication); or iterative reconstruction.
[2024-11-19 11:44] LABS: Abs Immature Grans 0.02 10^3/uL (0.0-0.06); Absolute Basophil Count 0.03 10^3/uL (0.0-0.2); Absolute Eosinophil Count 0.19 10^3/uL (0.0-0.7); Absolute Lymphocyte Count 1.32 10^3/uL (1.2-3.4); Absolute Monocyte Count 0.37 10^3/uL (0.1-0.8); Absolute Neutrophil Count 3.66 10^3/uL (1.2-6.7); Basophils % 0.5 %; Eosinophils % 3.4 %; HCT 42.6 % (36.0-46.0); Immature Grans % 0.4 %; Lymphocytes % 23.6 %; MCH 29.5 pg (27.0-33.0); MCHC 32.9 % (32.0-36.0); MCV 90 fL (80-95); MPV 10.2 fL (8.0-11.0); Monocytes % 6.6 %; Neutrophils % 65.5 %; Platelet Count 267 10^3/uL (130-400); RBC 4.74 10^6/uL (3.93-5.22); RDW 11.9 % (11.7-14.6); WBC 5.59 10^3/uL (4.4-10.8)
[2024-11-19] MEDS: LORazepam 2 MG/ML VIAL 0.5 MG IVP (11:46)
[2024-11-19 12:08] LABS: ALT 56 U/L (14-59); AST 21 U/L (15-37); Albumin 3.6 g/dL (3.4-5.0); Alkaline Phosphatase 114 U/L (46-116); Anion Gap 8.3 mmol/L (3-11); BUN 18 mg/dL (7-18); Bilirubin, Total 0.3 mg/dL (0.2-1.0); CO2 30.7 mmol/L (21.0-32.0); CREATININE 0.9 mg/dL (0.55-1.02); Calcium 9.2 mg/dL (8.5-10.1); Chloride 103 mmol/L (98-107); Estimated GFR 70.07 (mL/min/1.73m2); Glucose 167 mg/dL (74-106); Lipase 51 U/L (<78); Sodium 142 mmol/L (136-145); TSH (W/Ref FT4) 1.53 uIU/mL (0.36-3.74); Total Protein 7.8 g/dL (6.4-8.2); Troponin I 6 ng/L (<or=51)
--- NOTE | 2024-11-19 12:27 | DI.VRAD_ITS ---
PROCEDURE INFORMATION: Exam: CT Head Without Contrast Exam date and time: 11/19/2024 12:09 PM Age: 69 years old Clinical indication: Other: Dizziness x3 days TECHNIQUE: Imaging protocol: Computed tomography of the head without contrast. Radiation optimization: All CT scans at this facility use at least one of these dose optimization techniques: automated exposure control; mA and/or kV adjustment per patient size (includes targeted exams where dose is matched to clinical indication); or iterative reconstruction. COMPARISON: CT HEAD WO 09/17/2022 7:24 PM FINDINGS: Brain: Normal. No hemorrhage. Unremarkable white matter. No mass effect. Cerebral ventricles: No ventriculomegaly. Paranasal sinuses: Visualized sinuses are unremarkable. No fluid levels. Mastoid air cells: Visualized mastoid air cells are well aerated. Bones: Unremarkable. No acute fracture. Soft tissues: Unremarkable. IMPRESSION: No large territorial infarct or intracranial bleed. Dictated and Authenticated by: Ayo Max MD. Orderin Marty Montilla MD
--- NOTE | 2024-11-19 12:28 | DI.VRAD_ITS ---
PROCEDURE INFORMATION: Exam: XR Chest Exam date and time: 11/19/2024 12:18 PM Age: 69 years old Clinical indication: Other: Dizziness TECHNIQUE: Imaging protocol: Radiologic exam of the chest. Views: 2 views. COMPARISON: CR XR CHEST 2V PA LATERAL 06/01/2024 10:43 AM FINDINGS: Lungs: Bilateral apical fibrotic changes. There is no evidence of focal pulmonary consolidation. Pleural spaces: Unremarkable. No pleural effusion. No pneumothorax. Heart/Mediastinum: Unremarkable. No cardiomegaly. Bones/joints: Mild degenerative disease of bilateral acromioclavicular joints. IMPRESSION: No acute cardiopulmonary process. Dictated and Authenticated by: Ayo Max MD. Orderin Marty Montilla MD
[2024-11-19 13:01] LABS: Troponin I 6 ng/L (<or=51)
== END 2024-11-19 13:24 | disposition home or self-care (01) ==
PROVIDERS: Emergency Provider Physician Assistant; PCP Family Medicine
DX: F41.0 Panic disorder [episodic paroxysmal anxiety] (principal); I10 Essential (primary) hypertension; R42 Dizziness and giddiness; E03.9 Hypothyroidism, unspecified
CPT/HCPCS: 80053; 83690; 93005; 96374; 99285; 70450; 71046; 83735; 84443; 84484; 85025; 93010; 99284; J2060

== ENCOUNTER 2024-12-21 09:40 | Outpatient (CLI) | payer MEDICARE, SELFPAY ==
[2024-12-21 12:37] LABS: Hemoglobin A1C 5.8 % (<5.7)
[2024-12-21 20:02] LABS: Hepatitis C Ab w Rflx HCV PCR Negative (Negative)
[2024-12-21 20:04] LABS: HIV-1/2 Ag & Ab Screen Negative (Negative)
[2024-12-21 20:05] LABS: Hep B Core Antibody Negative (Negative)
== END 2024-12-21 09:41 | disposition home or self-care (01) ==
LOC: LOS 09:41
PROVIDERS: PCP Family Medicine; Referring Provider Family Medicine; Visit Provider Family Medicine
DX: Z11.3 Encounter for screening for infections with a predominantly sexual mode of transmission (principal); Z11.4 Encounter for screening for human immunodeficiency virus [HIV]; Z11.59 Encounter for screening for other viral diseases; R73.9 Hyperglycemia, unspecified
CPT/HCPCS: 36415; 86704; 86803; 87389; 83036

== ENCOUNTER 2025-01-28 16:15 | Emergency (ER) | payer MEDICARE, SELFPAY ==
[2025-01-28] VITALS (29 sets, daily range): BP systolic 130–165; BP diastolic 66–92; PULSE 72–92; RESP 12–29; TEMP 36.6; O2SAT 93–99
--- NOTE | 2025-01-28 16:15 | RT.EKG_ITS ---
APPROVED REPORT Exam: Resting ECG Reason for Exam: dizziness Patient Location: E HR:81 bpm ECG Measurements Heart Rate 81 AXIS OK 154 P 52 QRSd 84 QRS 54 QT 377 T 8 QTc 439 Conclusion Sinus rhythm. 81 normal axis no stemi
[2025-01-28] MEDS: Normal Saline 1,000 ML 1000 ML IV (17:09)
[2025-01-28 17:17] LABS: Abs Immature Grans 0.01 10^3/uL (0.0-0.06); Absolute Basophil Count 0.03 10^3/uL (0.0-0.2); Absolute Eosinophil Count 0.28 10^3/uL (0.0-0.7); Absolute Lymphocyte Count 1.78 10^3/uL (1.2-3.4); Absolute Monocyte Count 0.55 10^3/uL (0.1-0.8); Absolute Neutrophil Count 3.82 10^3/uL (1.2-6.7); Basophils % 0.5 %; Eosinophils % 4.3 %; HCT 40.1 % (36.0-46.0); HGB 13.1 g/dL (11.2-15.7); Immature Grans % 0.2 %; Lymphocytes % 27.5 %; MCH 29.2 pg (27.0-33.0); MCHC 32.7 % (32.0-36.0); MCV 89 fL (80-95); MPV 10.3 fL (8.0-11.0); Monocytes % 8.5 %; Platelet Count 259 10^3/uL (130-400); RBC 4.49 10^6/uL (3.93-5.22); RDW 11.9 % (11.7-14.6); RDW-SD 38.5 fL; WBC 6.47 10^3/uL (4.4-10.8)
[2025-01-28] MEDS: Meclizine 25 MG TAB PO (17:22)
[2025-01-28 17:32] LABS: ALT 34 U/L (14-59); AST 20 U/L (15-37); Albumin 3.7 g/dL (3.4-5.0); Alkaline Phosphatase 113 U/L (46-116); Anion Gap 6.2 mmol/L (3-11); BUN 17 mg/dL (7-18); Bilirubin, Total 0.2 mg/dL (0.2-1.0); CO2 29.8 mmol/L (21.0-32.0); Calcium 8.8 mg/dL (8.5-10.1); Chloride 100 mmol/L (98-107); Estimated GFR 61.75 (mL/min/1.73m2); Glucose 123 mg/dL (74-106); Magnesium 2.1 mg/dL (1.8-2.4); Potassium 4.2 mmol/L (3.5-5.1); Sodium 136 mmol/L (136-145); Total Protein 7.5 g/dL (6.4-8.2)
[2025-01-28] MEDS: clonazePAM 0.5 MG TAB PO (17:55)
[2025-01-28 18:20] LABS: Bilirubin Negative (Negative); Blood Trace-intact (Negative); Clarity Clear (Clear); Glucose Negative (Negative); Ketones Negative (Negative); Leukocyte Esterase Trace (Negative); Nitrite Negative (Negative); Urobilinogen 0.2 mg/dL (Up to 0.2)
[2025-01-28 18:36] LABS: Bacteria Negative HPF (Negative); C & S Indicated? No; Casts Negative LPF (Negative); Crystals Negative HPF (Negative); Epithelial Cells Rare HPF (Negative); Mucus Negative (Negative); RBC 0-2 HPF (0-2); WBC 0-2 HPF (0-5)
--- NOTE | 2025-01-28 19:40 | W.ED.GENAD ---
Discharge Plan Disposition Patient Disposition: Home Discharge Details Clinical Impression: Fatigue Primary Care Provider: Matthew Mcclendon ED Provider: Teresa King Home Meds and New Rx's Prescriptions: No Action multivitamin Tablet 1 tab PO HS diltiazem HCl 120 mg capsule,extended release 24hr 120 mg PO DAILY Qty: 30 1RF omeprazole 20 mg capsule,delayed release(DR/EC) 20 mg PO DAILY Qty: 90 4RF Patient Comments: takes in AM with levothyroxine. levothyroxine 75 mcg tablet 75 mcg PO DAILY Qty: 90 3RF losartan 100 mg tablet 100 mg PO HS Qty: 90 3RF clonazepam [Klonopin] 0.5 mg tablet 0.25 mg PO BID PRN (Reason: anxiety) Qty: 10 0RF Rx Instructions: Take 1/2 tab for a total dose of 0.25 mg BID prn. Discharge Instructions Additional Instructions: Lab work examination and vital signs are all within normal limits today. He might just be feeling a little rundown,'s make sure to take good care of yourself, make sure you are drinking a lot and having regular meals. If you develop any new or concerning symptoms please follow-up for reevaluation either here or at your primary care provider's office. HPI General Date/Time Provider Initiated Documentation: 01/28/25 16:45. Limitations to Documentation: no limitations. Information obtained by: patient. HPI Narrative: 69-year-old female with past medical history of hypothyroidism, anxiety, hypertension presents for evaluation of not feeling well. She reports that she did a brief day trip with her sister and did some shopping. There is not anything very abnormal about the day. She reports that she feels very thirsty and that her mouth feels very dry. She says that she just feels bone weary. She has no fever, chest pain, shortness of breath, abdominal pain, nausea or vomiting. She reports that she feels a little bit lightheaded but has been trying to drink some water. She reports up until this afternoon she was feeling fine. Related Data Home Medications ?Medication ?Instructions ?Recorded ?Confirmed multivitamin 1 tab PO HS 10/27/22 01/28/25 levothyroxine 75 mcg tablet 75 mcg PO DAILY #90 tabs 07/21/24 01/28/25 losartan 100 mg tablet 100 mg PO HS #90 tabs 07/21/24 01/28/25 omeprazole 20 mg capsule,delayed 20 mg PO DAILY #90 tab-caps 09/21/24 01/28/25 release diltiazem HCl 120 mg 120 mg PO DAILY #30 caps 12/21/24 01/28/25 capsule,extended release 24 hr clonazepam 0.5 mg tablet (Klonopin) 0.25 mg (1/2 x 0.5 mg) PO BID PRN 01/16/25 01/28/25 anxiety #10 tabs Previous Rx's ?Medication ?Instructions ?Recorded levothyroxine 75 mcg tablet 75 mcg PO DAILY #90 tabs 07/21/24 losartan 100 mg tablet 100 mg PO HS #90 tabs 07/21/24 omeprazole 20 mg capsule,delayed 20 mg PO DAILY #90 tab-caps 09/21/24 release diltiazem HCl 120 mg 120 mg PO DAILY #30 caps 12/21/24 capsule,extended release 24 hr clonazepam 0.5 mg tablet (Klonopin) 0.25 mg (1/2 x 0.5 mg) PO BID PRN 01/16/25 anxiety #10 tabs Allergies Allergy/AdvReac Type Severity Reaction Status Date / Time hydrochlorothiazide AdvReac Intermediate lip Verified 01/28/25 16:21 tingling lisinopril AdvReac Intermediate cough Verified 01/28/25 16:21 amlodipine AdvReac Mild edema Verified 01/28/25 16:21 sulfamethoxazole (From AdvReac rash Verified 01/28/25 16:21 Bactrim) trimethoprim (From Bactrim) AdvReac rash Verified 01/28/25 16:21 General Stated Complaint: Dizzy/Sync [place]: 3 Exam Narrative Exam Narrative: Review of Systems: All systems reviewed & are unremarkable except as noted in HPI and below Well-developed, no acute distress NCAT PERRL, normal conjunctiva Slightly dry oral mucosa RRR no murmur Unlabored respiratory effort clear bilaterally Nondistended abdomen Extremities w/o deformity, no cyanosis, no edema No rashes or lesions. no focal neurologic deficits, cranial nerves intact, good sensation throughout and strength is normal and equal bilaterally, gait is normal Appropriate mood and affect Course Vital Signs Vital signs: Vital Signs Temperature 36.6 C 01/28/25 16:19 Pulse 88 01/28/25 16:19 Respiratory Rate 18 01/28/25 16:19 Blood Pressure 152/92 H 01/28/25 16:19 Pulse Oximetry 97 01/28/25 16:19 Temperature 36.6 C 01/28/25 16:19 Pulse 79 01/28/25 18:50 Pulse 80 01/28/25 18:50 Respiratory Rate 18 01/28/25 18:54 Respiratory Effort Normal 01/28/25 18:54 Respiratory Depth Normal 01/28/25 18:54 Respiratory Pattern Normal 01/28/25 18:54 Blood Pressure 144/66 H 01/28/25 18:46 Blood Pressure Mean 95 01/28/25 18:46 Pulse Oximetry 99 01/28/25 18:50 Lab/Test Results Lab/Test Results: Laboratory Tests Range/Units 01/28/25 01/28/25 17:08 17:24 WBC (4.4-10.8) 10^3/uL 6.47 RBC (3.93-5.22) 10^6/uL 4.49 Hgb (11.2-15.7) g/dL 13.1 Hct (36.0-46.0) % 40.1 MCV (80-95) fL 89 MCH (27.0-33.0) pg 29.2 MCHC (32.0-36.0) % 32.7 RDW (11.7-14.6) % 11.9 Plt Count (130-400) 10^3/uL 259 MPV (8.0-11.0) fL 10.3 Immature Gran % % 0.2 Neutrophils % % 59.0 Lymphocytes % % 27.5 Monocytes % % 8.5 Eosinophils % % 4.3 Basophils % % 0.5 Nucleated RBC % (0.0-0.3) % 0.0 Absolute Neutrophils (1.2-6.7) 10^3/uL 3.82 Absolute Lymphocytes (1.2-3.4) 10^3/uL 1.78 Absolute Monocytes (0.1-0.8) 10^3/uL 0.55 Absolute Eosinophils (0.0-0.7) 10^3/uL 0.28 Absolute Basophils (0.0-0.2) 10^3/uL 0.03 Sodium (136-145) mmol/L 136 Potassium (3.5-5.1) mmol/L 4.2 Chloride (98-107) mmol/L 100 Carbon Dioxide (21.0-32.0) mmol/L 29.8 Anion Gap (3-11) mmol/L 6.2 BUN (7-18) mg/dL 17 Creatinine (0.55-1.02) mg/dL 1.0 Est GFR (CKD-EPI 2020) (mL/min/1.73m2) 61.75 Glucose (74-106) mg/dL 123 H Calcium (8.5-10.1) mg/dL 8.8 Magnesium (1.8-2.4) mg/dL 2.1 Total Bilirubin (0.2-1.0) mg/dL 0.2 AST (15-37) U/L 20 ALT (14-59) U/L 34 Alkaline Phosphatase (46-116) U/L 113 Total Protein (6.4-8.2) g/dL 7.5 Albumin (3.4-5.0) g/dL 3.7 Urine Color (Yellow) Yellow Urine Clarity (Clear) Clear Urine pH (5-8) 7.0 Ur Specific [place] (1.005-1.025) 1.010 Urine Protein (Neg-Trace) mg/dL Negative Urine Ketones (Negative) mg/dL Negative Urine Blood (Negative) Trace-intact H Urine Nitrite (Negative) Negative Urine Bilirubin (Negative) Negative Urine Urobilinogen (Up to 0.2) mg/dL 0.2 Ur Leukocyte Esterase (Negative) Trace H Urine RBC (0-2) HPF 0-2 Urine WBC (0-5) HPF 0-2 Ur Epithelial Cells (Negative) HPF Rare Urine Crystals (Negative) HPF Negative Urine Bacteria (Negative) HPF Negative Urine Casts (Negative) LPF Negative Urine Mucus (Negative) Negative Ur Culture Indicated? No Urine Glucose (Negative) mg/dL Negative Medical Decision Making Emergent evaluation of fatigue feeling. Patient is unable to really describe anything other than repeatedly saying that she is just a bone weary. She has normal vital signs. Her EKG was reviewed and independently interpreted: Sinus 81 normal axis no STEMI. I do not suspect an acute intracranial etiology or cardiac etiology of her symptoms. Perhaps mild dehydration. Lab work was obtained. There is no leukocytosis or anemia, no electrolyte derangement. Urinalysis does not have any signs of infection. The patient had no orthostatic changes on vital signs but was given IV fluids and she reports resolution of her symptoms. During her stay in the emergency department she became highly anxious which is a common problem for her and requested one of her medications. Which was given and also improved her anxiety symptoms. At this time there is no emergent etiology identified for her bone weariness and I recommend that she continue to monitor her symptoms closely. Return to the emergency department with any new or worsening concerns and follow-up closely with her primary care provider. Quality:SDOH Health Related Social Needs: Health related social needs feeling lonely/isolated (Z60.8) [facility] All Active Problems (Updated 01/28/25 @ 18:43 by Teresa King MD) Severe obstructive sleep apnea (Acute ~08/09/19) DR. SHIPMAN; on CPAP Anxiety (Chronic) Hypothyroidism (Chronic 10/19/13) call if symptoms worsen/persist doubt due to hormone imbalance, given recent testing Hyperglycemia (Acute) Elevated total protein (Acute) Non-cardiac chest pain (Acute) Displaced fracture of left great toe (Acute) Essential hypertension (Acute) Shoulder pain, left (Acute) Breast pain, left (Acute) I spoke with the radiologist; she reviewed the mammogram from last month compared with previous mammograms. The breast looks fine. She suggested without focal tenderness that an ultrasound would be low yield Fatigue (Acute) possibly due to poor sleep/PATRICK Mucous polyp of cervix (Acute 08/22/07) Adult acne (Acute 10/23/14) rowan-oral Allergic rhinitis (Acute) post nasal drip with dry cough Medical History Palpitations negative event monitor in 2020 Hypertension Sleep disorder Depressive disorder Gastroesophageal reflux disease (10/19/13) Family History (Updated 12/22/24 @ 13:03 by Yolanda Osorio) Mother , 74 Essential hypertension Hyperlipidemia Neoplasm LUNG Lung cancer Father , 69 Essential hypertension Heart disease Glioblastoma Sister Depression Hypertension Brother No problems noted. Brother Depression Maternal Grandfather No problems noted. Paternal Grandfather No problems noted. Maternal Grandmother , 76? Heart disease Paternal Grandmother Uterine cancer Son No problems noted. Son No problems noted. 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 Pets and animals: No Sexually active: No Do you think of yourself as: straight/heterosexual Current gender identity: female What is your relationship status?: How often do you talk on the phone with friends or family?: twice per week How often do you get together with friends or relatives?: once per week How often do you attend restorationism or congregation services?: 1-3 times per year Do you belong to any clubs or organized social groups?: no Panel score (0-1 are the most socially isolated patients): 2 What type of physical activity do you participate in: walking Duration: 15-30 minutes/day Frequency: 1-2 times per week Fide/Taoism: Denominational Special fide needs: No Agree to transfusion: Yes Seatbelt use: always Helmet use: Yes Helmet use: always Drive intox or ride w/intox hook up driver: No Working smoke detector in home: Yes Carbon monox detector in home: Yes Firearms in home: Yes Firearms unloaded and locked: Yes Do you feel safe at home: Yes Do you feel safe in your relationship?: Yes Victim of physical abuse: No Victim of emotional abuse: No Victim of sexual abuse: No Would you like helpful sources: No
== END 2025-01-28 18:55 | disposition home or self-care (01) ==
PROVIDERS: Emergency Provider Emergency Medicine; PCP Family Medicine
DX: R53.83 Other fatigue (principal); Z60.8 Other problems related to social environment; I10 Essential (primary) hypertension; R42 Dizziness and giddiness
CPT/HCPCS: 99283; 99284; 80053; 93005; 96360; 81003; 81015; 83735; 85025; 93010

== ENCOUNTER 2025-03-22 01:57 | Outpatient (CLI) | payer MEDICARE, SELFPAY ==
--- NOTE | 2025-03-22 08:00 | DI.MAMMO_ITS ---
Exam(s) MAMMO SCREENING EXAM: MAMMO SCREENING CLINICAL HISTORY: screening, Z12.39. TECHNIQUE: Bilateral full field digital CC and MLO mammographic images were obtained with 3D tomosynthesis and utilizing computer aided detection (CAD). COMPARISON: Prior mammograms were reviewed. FINDINGS: There has been no significant change in the appearance and distribution of the fibroglandular tissue. There are no new spiculated masses nor malignant appearing microcalcification groups. There is no significant architectural distortion nor skin thickening-retraction. IMPRESSION: No radiographic evidence of malignancy. BI-RADS Category 1 - Negative Breast Density - Category B - There are scattered areas of fibroglandular density. Breast density Category C or D implies that the patient has dense breast tissue. Dense breast tissue can make it harder to find cancer on a mammogram. Dense breast tissue is also associated with an increased risk of breast cancer. This information about the result of the mammogram report was provided to the patient to raise their awareness. Use this report when you speak with the patient about their risks for breast cancer, which includes their family history. At that time, you may recommend additional screening tests (Ultrasound or MRI) as these tests may add significant information. A negative radiographic report should not delay biopsy if a dominant or clinically suspicious mass is present. Up to ten percent of cancers are not identified on mammography. A negative report may reinforce clinical impression. Adenosis and dense breasts may obscure an underlying neoplasm. False positive reports average 6 to 10%. Patient will receive a letter notifying them of these results.
--- NOTE | 2025-03-22 08:00 | DI.DEXA_ITS ---
Exam(s) XR DEXA BONE DENSITY W/WO FIDEL EXAM: XR DEXA BONE DENSITY W/WO FIDEL CLINICAL HISTORY: Annual exam, menopausal disorder, osteoporosis screening, N95.9, Z13.820 TECHNIQUE: [employer] Horizon C densitometer analysis of left hip, lumbar spine and left forearm. Lateral survey image of the thoracic and lumbar spine. COMPARISON: CR,XR XR CHEST 2V PA LATERAL from 11/19/2024 FINDINGS: Lateral view of the thoracic and lumbar spine shows no evidence of compression fractures. Bone mineral density measurements of the lumbar spine correspond to a total T- score of -0.6, in the normal range. Bone mineral density measurements of the left hip correspond to a total T-score of -1.0. The femoral neck T-score is -1.5, in the osteopenic range.. Theleft forearm bone mineral density measurements correspond to a T-score of the distal 3rd of -0.7, in the normal range.. IMPRESSION: Normal bone mineral density of the lumbar spine and forearm. Osteopenia of the hip.
== END 2025-03-22 02:17 ==
LOC: DI 01:57
PROVIDERS: PCP Family Medicine; Visit Provider Family Medicine
DX: Z12.31 Encounter for screening mammogram for malignant neoplasm of breast (principal); N95.9 Unspecified menopausal and perimenopausal disorder; Z13.820 Encounter for screening for osteoporosis; M81.0 Age-related osteoporosis without current pathological fracture
CPT/HCPCS: 77063; 77067; 77080